=== PATIENT | male | born 1955 | race Caucasian/White ===

== ENCOUNTER 2016-03-25 17:06 | Emergency (ER) | payer MEDICARE ==
[2016-03-25] MEDS ORDERED: PROVENTIL 2.5 MG/3 ML NEB IH ONE ×4 (17:17→17:34)
--- NOTE | 2016-03-25 17:30 | ERPHSYRPT ---
- History of Present Illness Time Seen by Provider: 03/25/16 17:24 Source: patient Exam Limitations: no limitations Patient Subjective Stated Complaint: sob, cough for days Triage Nursing Assessment: woke up this morning with sob. white/yellow sputum. sob on arrival. rt upper wheeze with all over diminished. skin warm and dry. retractive sob. rt rib pain 'from coughing so hard i hurt myself' Physician History: States increase SOB, productive cough today, diaphoresis and chest discomfort from coughing. Pt. has COPD and on nebs QID. No fever, chills, dizziness or weakness. States no previous adm for resp. problems. Also been on Predisone for COPD exacerbation. Increase coughing when he felt "something popped" in R lower chest. Timing/Duration: today Activities at Onset: sleep Severity of Dyspnea-Max: moderate Severity of Dyspnea-Current: moderate Possible Cause: occasional episodes Modifying Factors: Improves With: activity (worsen), albuterol nebulizer ( improve), coughing (worsen) Associated Symptoms: constant, cough, wheezing, No edema, No fever, No chills, No lightheadedness International travel in last 2 weeks: No Allergies/Adverse Reactions: Penicillins Allergy (Verified 03/25/16 17:18) Home Medications: Albuterol 2.5 mg/3 ml Neb [Proventil 2.5 mg/3 ml Neb] 2.5 mg IH QID [History] Allopurinol 300 mg [Zyloprim 300 mg] 300 mg PO DAILY 03/25/16 [History] Fluticasone/Salmeterol [Advair 250-50 Diskus] 1 each IH DAILY 03/25/16 [History] Losartan Potassium [Cozaar] 100 mg PO DAILY 03/25/16 [History] Magnesium Oxide 400 mg [Mag-Ox 400] 400 mg PO DAILY 03/25/16 [History] Metformin HCl Xr 500 mg [Glucophage XR 500 MG] 500 mg PO DAILY 03/25/16 [ History] Simvastatin 20 mg PO DAILY 03/25/16 [History] Hx Tetanus, Diphtheria Vaccination/Date Given: Yes Hx Influenza Vaccination/Date Given: Yes Hx Pneumococcal Vaccination/Date Given: Yes Immunizations Up to Date: Yes - Past Medical History Pertinent Past Medical History: Yes Neurological History: No Pertinent History ENT History: No Pertinent History Cardiac History: No Pertinent History Respiratory History: COPD, Emphysema Endocrine Medical History: Diabetes Type II GI Medical History: GERD - Past Surgical History Past Surgical History: Yes Other Surgical History: dental - Social History Smoking Status: Former smoker Exposure to second hand smoke: No Alcohol Use: None Drug Use: none Patient Lives Alone: Yes - Nursing Vital Signs Nursing Vital Signs: Initial Vital Signs Temperature 99.6 F Temperature Source Oral Pulse Rate 89 Respiratory Rate 18 Blood Pressure 135/87 Pain Intensity 9 - Physical Exam General Appearance: mild distress, other (obese) Eye Exam: PERRL/EOMI Neck Exam: normal inspection, supple Respiratory Exam: diminished breath sounds, wheezing Cardiovascular/Chest Exam: normal heart sounds, regular rate/rhythm Abdominal/Gastrointestinal Exam: soft, No tenderness, No distention, No mass Extremity Exam: non-tender, normal range of motion, normal inspection, no calf tenderness, no pedal edema Peripheral Pulses Exam: dorsalis-pedis (R): 2+, dorsalis-pedis (L): 2+ Neurologic Exam: alert, oriented x 3, 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 ) Ordered Tests: Active Orders 24 hr Category Date Time Status Grain Packer STAT Care 03/25/16 17:28 Active EKG-ER Only STAT Care 03/25/16 17:34 Active IV Insertion STAT Care 03/25/16 17:27 Active CHEST 2 VIEWS (PA AND LAT) Stat Exams 03/25/16 17:36 Completed BMP Stat Lab 03/25/16 17:55 Completed CBC W DIFF Stat Lab 03/25/16 17:55 Completed D-DIMER QUANTITATION Stat Lab 03/25/16 17:55 Completed NT PRO BNP Stat Lab 03/25/16 17:55 Completed TROPONIN Stat Lab 03/25/16 17:55 Completed Respiratory Nebulizer STAT RT 03/25/16 17:20 Completed Respiratory Nebulizer STAT RT 03/25/16 17:30 Completed Respiratory Nebulizer STAT RT 03/25/16 19:10 Completed Medication Summary Discontinued Medications Generic Name Dose Route Start Last Admin Trade Name Jessica PRN Reason Stop Dose Admin Albuterol Sulfate Confirm 03/25/16 17:17 Proventil 2.5 Mg/3 Ml Neb Administered 03/25/16 17:18 Dose 2.5 mg IH .STK-MED ONE Albuterol Sulfate 2.5 mg 03/25/16 17:20 03/25/16 17:20 Proventil 2.5 Mg/3 Ml Neb IH 03/25/16 17:21 2.5 mg STAT ONE Administration Albuterol Sulfate 2.5 mg 03/25/16 17:32 03/25/16 17:37 Proventil 2.5 Mg/3 Ml Neb IH 03/25/16 17:33 2.5 mg STAT ONE Administration Albuterol Sulfate Confirm 03/25/16 17:34 Proventil 2.5 Mg/3 Ml Neb Administered 03/25/16 17:35 Dose 2.5 mg IH .STK-MED ONE Albuterol/Ipratropium Confirm 03/25/16 19:10 Duoneb 0.5-3 Mg/3 Ml Neb Administered 03/25/16 19:11 Dose 3 ml IH .STK-MED ONE Albuterol/Ipratropium 3 ml 03/25/16 19:10 03/25/16 19:16 Duoneb 0.5-3 Mg/3 Ml Neb IH 03/25/16 19:11 3 ml STAT ONE Administration Methylprednisolone Sodium Succinate 125 mg 03/25/16 17:38 03/25/16 17:46 Solu-Medrol 125 Mg IV 03/25/16 17:39 125 mg STAT ONE Administration Methylprednisolone Sodium Succinate Confirm 03/25/16 17:46 Solu-Medrol 125 Mg Administered 03/25/16 17:47 Dose 125 mg .ROUTE .STK-MED ONE Morphine Sulfate 4 mg 03/25/16 18:22 03/25/16 18:24 Morphine Sulfate 4 Mg Inj IV 03/25/16 18:23 4 mg STAT ONE Administration Morphine Sulfate Confirm 01/14/17 18:24 Morphine Sulfate 4 Mg Inj Administered 03/25/16 18:25 Dose 4 mg .ROUTE .STK-MED ONE Lab/Rad Data: Laboratory Result Diagrams 03/25/16 17:55 03/25/16 17:55 Laboratory Results 03/25/16 03/25/16 03/25/16 Range/Units 17:55 17:55 17:55 WBC 14.5 H (4.0-10.5) K/mm3 RBC 5.03 (4.1-5.6) M/mm3 Hgb 15.4 (12.5-18.0) gm/dl Hct 46.7 (42-50) % MCV 92.8 (78-100) fl MCH 30.6 (26-32) pg MCHC 33.0 (32-36) g/dl RDW 13.7 (11.5-14.0) % Plt Count 236 (150-450) K/mm3 MPV 10.7 H (6-9.5) fl Gran % 74.7 H (36.0-66.0) % Lymphocytes % 13.8 L (24.0-44.0) % Monocytes % 10.2 (0.0-12.0) % Eosinophils % 1.2 (0.00-5.0) % Basophils % 0.1 (0.0-0.4) % Basophils # 0.02 (0-0.4) D-Dimer < 0.20 (0.00-0.49) mg/L Sodium 136 (136-145) mEq/L Potassium 4.4 (3.5-5.1) mEq/L Chloride 98 (98-107) mEq/L Carbon Dioxide 28.3 (21-32) mEq/L Anion Gap 14.3 (5-15) MEQ/L BUN 18 (9-20) mg/dL Creatinine 1.06 (0.55-1.30) mg/dl Estimated GFR > 60 ML/MIN Glucose 152 H (70-110) MG/DL Calcium 8.7 (8.5-10.1) mg/dL Troponin I < 0.017 (0.000-0.056) ng/ml NT-Pro-B Natriuret Pep < 5.0 (0-125) pg/ml - Progress Progress: improved Air Movement: good Progress Note: 03/25/16 19:02 patient was given DuoNeb's treatment, Solu-Medrol which did seem to improve his respiratory function. Patient was also given morphine for pain. Patient talking full sentences without acute respiratory distress. O2 sats were 93-96%. Blood Culture(s) Obtained: No Counseled pt/family regarding: lab results, diagnosis, rad results - Departure Time of Disposition: 19:19 Departure Disposition: Home Clinical Impression: Bronchitis, COPD exacerbation, Pulmonary nodule, right Condition: Stable Critical Care Time: No Referrals: ELENO RICHARDS [Primary Care Provider] - Instructions: Chronic Obstructive Pulmonary Disease Additional Instructions: return for worse cough, shortness of breath, fever or any problems. RX: Levaquin, Prednisone, Tussione'sx Patient to have further evaluation of right pulmonary nodule with chest CT per his family physician.
[2016-03-25] MEDS ORDERED: solu-MEDROL 125 MG IV ONE (17:38)
[2016-03-25] MEDS ORDERED: solu-MEDROL 125 MG ONE (17:46)
[2016-03-25 18:07] LABS: BASOPHIL % 0.1 % (0.0-0.4); Eosinophil % 1.2 % (0.00-5.0); Granulocytes % 74.7 % (36.0-66.0); Lymphocytes % 13.8 % (24.0-44.0); Mean Cell Volume 92.8 fl (78-100); Mean Corpuscular Hemoglobin 30.6 pg (26-32); Mean Platelet Volume 10.7 fl (6-9.5); Monocytes % 10.2 % (0.0-12.0); Platelet Count 236 K/mm3 (150-450); Red Blood Count 5.03 M/mm3 (4.1-5.6); Red Cell Distribution Width 13.7 % (11.5-14.0); White Blood Count 14.5 K/mm3 (4.0-10.5)
[2016-03-25] MEDS ORDERED: MORPHINE SULFATE 4 MG INJ IV ONE (18:22)
[2016-03-25] MEDS ORDERED: MORPHINE SULFATE 4 MG INJ ONE (18:24)
[2016-03-25 18:28] LABS: ANION GAP 14.3 MEQ/L (5-15); BLOOD UREA NITROGEN 18 mg/dL (9-20); CHLORIDE 98 mEq/L (98-107); Carbon Dioxide 28.3 mEq/L (21-32); Glucose 152 MG/DL (70-110); Potassium 4.4 mEq/L (3.5-5.1); SODIUM 136 mEq/L (136-145)
[2016-03-25 18:31] LABS: TROPONIN < 0.017 ng/ml (0.000-0.056)
--- NOTE | 2016-03-25 18:32 | XRAY ---
Indication: Short of breath, cough, and right-sided pain. Comparison: September 02, 2013 PA/lateral chest again hyperinflated with calcified granulomas and bibasilar atelectasis/scarring. No focal infiltrate, consolidation, or large effusion. Heart is not enlarged. Vascularity normal. Bony thorax intact. Impression: Nonacute chest with chronic features.
[2016-03-25] MEDS ORDERED: DUONEB 0.5-3 MG/3 ml Neb IH ONE ×2 (19:10)
[2016-03-25] MEDS ORDERED: Levaquin 500 MG Tablet ONE (19:54)
[2016-03-25 20:01] VITALS: BP 139/79; PULSE 88; O2SAT 94
[2016-03-25] MEDS ORDERED: OXYCODONE-ACETAMINOPHEN 10-325 PO STA (20:02)
[2016-03-25] MEDS ORDERED: OXYCODONE-ACETAMINOPHEN 10-325 ONE (20:21)
[2016-03-26] MEDS ORDERED: Levaquin 500 MG Tablet PO ONE (19:41)
== END 2016-03-25 20:30 | disposition home or self-care (01) ==
LOC: ED 17:06
DX: J40 Bronchitis, not specified as acute or chronic (principal); J44.1 Chronic obstructive pulmonary disease with (acute) exacerbation; R91.1 Solitary pulmonary nodule; E11.9 Type 2 diabetes mellitus without complications; Z79.84 Long term (current) use of oral hypoglycemic drugs; Z87.891 Personal history of nicotine dependence
CPT/HCPCS: 36000; 36415; 71020; 80048; 83880; 84484; 85025; 85379; 93005; 93041; 94640; 96374; 96375; 99284; J2270; J2930

== ENCOUNTER 2016-04-02 00:34 | Inpatient (IN) | payer MEDICARE ==
[2016-04-02] MEDS ORDERED: Phenergan 25 MG INJ IV ONE (00:40)
[2016-04-02] MEDS ORDERED: DILAUDID 1 MG/ML INJECTION IV ONE ×2 (00:40→02:03)
[2016-04-02] MEDS ORDERED: Sodium Chloride 0.9% 1000 ML 1,000 ML IV SCH (00:45)
--- NOTE | 2016-04-02 00:50 | ERPHSYRPT ---
- History of Present Illness Time Seen by Provider: 04/02/16 00:38 Source: patient Exam Limitations: no limitations Physician History: 8 DAYS AGO PT COUGHED AND SOMETHING IN HIS RIGHT LOWER ANTERIOR CHEST "POPPED" WITH RESULTANT PAIN. PT JUST FINISHED A 7 DAY COURSE OF LEVAQUIN TODAY. PT DENIES ABDOMINAL PAIN, FEVER, VOMITING. PT HAS SHORTNESS OF AIR FROM HIS COPD. Allergies/Adverse Reactions: Penicillins Allergy (Verified 04/02/16 00:40) Home Medications: Albuterol 2.5 mg/3 ml Neb [Proventil 2.5 mg/3 ml Neb] 2.5 mg IH QID [History] Allopurinol 300 mg [Zyloprim 300 mg] 300 mg PO DAILY 03/25/16 [History] Fluticasone/Salmeterol [Advair 250-50 Diskus] 1 each IH DAILY 03/25/16 [History] Losartan Potassium [Cozaar] 100 mg PO DAILY 03/25/16 [History] Magnesium Oxide 400 mg [Mag-Ox 400] 400 mg PO DAILY 03/25/16 [History] Metformin HCl Xr 500 mg [Glucophage XR 500 MG] 500 mg PO DAILY 03/25/16 [ History] Simvastatin 20 mg PO DAILY 03/25/16 [History] Hx Tetanus, Diphtheria Vaccination/Date Given: Yes Hx Influenza Vaccination/Date Given: Yes Hx Pneumococcal Vaccination/Date Given: Yes - Review of Systems Constitutional: No Fever Respiratory: Cough, Dyspnea Cardiac: Chest Pain Abdominal/Gastrointestinal: No Abdominal Pain, No Vomiting, No Diarrhea All Other Systems: Reviewed and Negative - Past Medical History Pertinent Past Medical History: Yes Neurological History: No Pertinent History ENT History: No Pertinent History Cardiac History: No Pertinent History Respiratory History: COPD, Emphysema Endocrine Medical History: Diabetes Type II GI Medical History: GERD - Past Surgical History Past Surgical History: Yes Other Surgical History: dental - Social History Smoking Status: Former smoker Exposure to second hand smoke: No Alcohol Use: None Drug Use: none Patient Lives Alone: Yes - Nursing Vital Signs Nursing Vital Signs: Initial Vital Signs Pulse Rate 80 Respiratory Rate 24 Blood Pressure [] 163/87 Pain Intensity 4 - Physical Exam General Appearance: alert Eye Exam: PERRL/EOMI Ears, Nose, Throat Exam: TMs normal, pharyngeal erythema Neck Exam: normal inspection Respiratory Exam: airway intact, diminished breath sounds, prolonged expirations , wheezing (MINIMAL EXPIRATORY WHEEZING OVER POSTERIOR BASES.) Cardiovascular Exam: normal heart sounds Gastrointestinal/Abdomen Exam: normal bowel sounds, distention, other (LARGE ECCHYMOSIS OVER RIGHT SIDE OF ABDOMEN), No tenderness Back Exam: normal inspection Extremity Exam: No pedal edema Neurologic Exam: alert, cooperative - Course Nursing assessment & vital signs reviewed: Yes EKG Interpreted by Me: RATE (80), Sinus Rhythm, NORMAL AXIS, NORMAL QRS - Radiology Exams Chest X-ray Interpretation: Interpreted by me (CM; POSSIBLE RLL INFILTRATE.) - CT Exams Abdomen/Pelvis CT Interpretation: Tele-radiologist Report (RLL PNEUMONIA; SMALL PLEURAL EFFUSIONS RIGHT GREATER THAN LEFT.) Ordered Tests: Active Orders 24 hr Category Date Time Status EKG-ER Only STAT Care 04/02/16 00:40 Active IV Insertion STAT Care 04/02/16 00:40 Active Oxygen-ED Only NASAL CANNULA 2 lpm Care 04/02/16 03:00 Ordered Oxygen-ED Only NASAL CANNULA 4 lpm Care 04/02/16 02:52 Active ABDOMEN AND PELVIS W/0 CONTRAS [CT] Stat Exams 04/02/16 01:25 Taken CHEST 1 VIEW (PORTABLE) Stat Exams 04/02/16 01:23 Taken AMYLASE Stat Lab 04/02/16 00:55 Completed ARTERIAL BLOOD GASES Urgent Lab 04/02/16 00:48 Completed BLOOD CULTURE Stat Lab 04/02/16 03:00 Ordered CBC W DIFF Stat Lab 04/02/16 00:55 Completed CMP Stat Lab 04/02/16 00:55 Completed CULTURE,SPUTUM Stat Lab 04/02/16 03:00 Uncollected D-DIMER QUANTITATION Stat Lab 04/02/16 00:55 Completed LIPASE Stat Lab 04/02/16 00:55 Completed MAGNESIUM Stat Lab 04/02/16 00:55 Completed Manual Differential NC Stat Lab 04/02/16 00:55 Completed NT PRO BNP Stat Lab 04/02/16 00:55 Completed PROTIME WITH INR Stat Lab 04/02/16 00:55 Completed PTT Stat Lab 04/02/16 00:55 Completed TROPONIN Stat Lab 04/02/16 00:55 Completed UA Stat Lab 04/02/16 00:40 Ordered Respiratory Nebulizer STAT RT 04/02/16 03:01 Ordered Medication Summary Generic Name Dose Route Start Last Admin Trade Name Jessica PRN Reason Stop Dose Admin Sodium Chloride 1,000 mls @ 100 mls/hr 04/02/16 00:45 04/02/16 01:06 Sodium Chloride 0.9% 1000 Ml IV 05/02/16 00:44 100 mls/hr .Q10H ANJALI Administration Azithromycin 250 mls @ 125 mls/hr 04/02/16 03:00 Zithromax 500 Mg/ 250 Ml Nacl Premix IV 04/02/16 04:59 STAT ONE Ceftriaxone Sodium/Dextrose 50 mls @ 100 mls/hr 04/02/16 03:00 Rocephin 1 Gm-D5w 50 Ml Bag IV 04/02/16 03:29 STAT ONE Discontinued Medications Generic Name Dose Route Start Last Admin Trade Name Jessica PRN Reason Stop Dose Admin Albuterol Sulfate 2.5 mg 04/02/16 03:00 Proventil 2.5 Mg/3 Ml Neb IH 04/02/16 03:01 STAT ONE Hydromorphone HCl 1 mg 04/02/16 00:40 04/02/16 01:07 Dilaudid 1 Mg/Ml Injection IV 04/02/16 00:41 1 mg STAT ONE Administration Hydromorphone HCl Confirm 04/02/16 01:00 Dilaudid 1 Mg/Ml Injection Administered 04/02/16 01:01 Dose 1 mg .ROUTE .STK-MED ONE Hydromorphone HCl 1 mg 04/02/16 02:03 04/02/16 02:05 Dilaudid 1 Mg/Ml Injection IV 04/02/16 02:04 1 mg STAT ONE Administration Hydromorphone HCl Confirm 04/02/16 02:04 Dilaudid 1 Mg/Ml Injection Administered 04/02/16 02:05 Dose 1 mg .ROUTE .STK-MED ONE Sodium Chloride Confirm 04/02/16 01:00 Sodium Chloride 0.9% 1000 Ml Administered 04/02/16 01:01 Dose 1,000 mls @ ud .ROUTE .STK-MED ONE Promethazine HCl 12.5 mg 04/02/16 00:40 04/02/16 01:05 Phenergan 25 Mg Inj IV 04/02/16 00:41 12.5 mg STAT ONE Administration Promethazine HCl Confirm 04/02/16 00:59 Phenergan 25 Mg Inj Administered 04/02/16 01:00 Dose 25 mg .ROUTE .STK-MED ONE Lab/Rad Data: Laboratory Result Diagrams 04/02/16 00:55 04/02/16 00:55 Laboratory Results 04/02/16 04/02/16 04/02/16 Range/Units 00:55 00:55 00:55 WBC 16.5 H (4.0-10.5) K/mm3 RBC 4.83 (4.1-5.6) M/mm3 Hgb 14.9 (12.5-18.0) gm/dl Hct 45.1 (42-50) % MCV 93.4 (78-100) fl MCH 30.8 (26-32) pg MCHC 33.0 (32-36) g/dl RDW 13.7 (11.5-14.0) % Plt Count 254 (150-450) K/mm3 MPV 10.2 H (6-9.5) fl Segmented Neutrophils 74 H (36.-66.) % Lymphocytes (Manual) 16 L (24-44) % Monocytes (Manual) 9 (0.0-12.0) % Eosinophils (Manual) 1 (0.00-3.0) % Differential Comment NORMAL Platelet Estimate NORMAL (NORMAL) INR 0.97 (0.8-3.0) PTT 27.2 (24.1-36.1) SECONDS D-Dimer 0.443 (0.00-0.49) mg/L Puncture Site pCO2 (35-45) mmHg pO2 (75-100) mmHg Base Excess (-2.0-2.0) O2 Saturation (94-100) g/dF ABG pH (7.35-7.45) ABG HCO3 (22-28) ABG O2 Sat (Measured) (95-100) % [place] Test A-a Gradient a/A Ratio Hemoglobin Carboxyhemoglobin (0.0-6.9) % THgb Methemoglobin (1.4-1.5) % Potassium 4.3 (3.5-5.1) Temperature C POC O2 Flow Rate % Sodium 135 L (136-145) mEq/L Chloride 97 L (98-107) mEq/L Carbon Dioxide 28.0 (21-32) mEq/L Anion Gap 14.0 (5-15) MEQ/L BUN 20 (9-20) mg/dL Creatinine 1.11 (0.55-1.30) mg/dl Estimated GFR > 60 ML/MIN Glucose 236 H (70-110) MG/DL Calcium 8.5 (8.5-10.1) mg/dL Magnesium 1.9 (1.8-2.4) mg/dL Total Bilirubin 0.3 (0.2-1.0) mg/dL AST 13 L (15-37) U/L ALT 52 (12-78) U/L Alkaline Phosphatase 76 (46-116) U/L Troponin I < 0.017 (0.000-0.056) ng/ml NT-Pro-B Natriuret Pep 57 (0-125) pg/ml Serum Total Protein 7.2 (6.4-8.2) gm/dL Albumin 3.5 (3.4-5.0) g/dL Amylase 41 (25-115) U/L Lipase 91 (73-393) U/L 04/02/16 Range/Units 00:48 WBC (4.0-10.5) K/mm3 RBC (4.1-5.6) M/mm3 Hgb (12.5-18.0) gm/dl Hct (42-50) % MCV (78-100) fl MCH (26-32) pg MCHC (32-36) g/dl RDW (11.5-14.0) % Plt Count (150-450) K/mm3 MPV (6-9.5) fl Segmented Neutrophils (36.-66.) % Lymphocytes (Manual) (24-44) % Monocytes (Manual) (0.0-12.0) % Eosinophils (Manual) (0.00-3.0) % Differential Comment Platelet Estimate (NORMAL) INR (0.8-3.0) PTT (24.1-36.1) SECONDS D-Dimer (0.00-0.49) mg/L Puncture Site LEFT RADIAL pCO2 38 (35-45) mmHg pO2 72 L (75-100) mmHg Base Excess 3.1 H (-2.0-2.0) O2 Saturation 93.9 L (94-100) g/dF ABG pH 7.46 H (7.35-7.45) ABG HCO3 27.0 (22-28) ABG O2 Sat (Measured) 96.1 (95-100) % [place] Test YES A-a Gradient 109 a/A Ratio 0.40 Hemoglobin 15.3 Carboxyhemoglobin 1.0 (0.0-6.9) % THgb Methemoglobin 1.2 L (1.4-1.5) % Potassium 4.3 (3.5-5.1) Temperature 37.0 C POC O2 Flow Rate 32 % Sodium (136-145) mEq/L Chloride (98-107) mEq/L Carbon Dioxide (21-32) mEq/L Anion Gap (5-15) MEQ/L BUN (9-20) mg/dL Creatinine (0.55-1.30) mg/dl Estimated GFR ML/MIN Glucose (70-110) MG/DL Calcium (8.5-10.1) mg/dL Magnesium (1.8-2.4) mg/dL Total Bilirubin (0.2-1.0) mg/dL AST (15-37) U/L ALT (12-78) U/L Alkaline Phosphatase (46-116) U/L Troponin I (0.000-0.056) ng/ml NT-Pro-B Natriuret Pep (0-125) pg/ml Serum Total Protein (6.4-8.2) gm/dL Albumin (3.4-5.0) g/dL Amylase (25-115) U/L Lipase (73-393) U/L - Progress Discussed with : Donny (OBS - [id number]) - Departure Time of Disposition: 03:09 Departure Disposition: Observation Clinical Impression: RLL PNEUMONIA, CHEST PAIN, ABDOMINAL BRUISING, COPD, DM, GERD Condition: Fair Critical Care Time: No
[2016-04-02 00:58] LABS: A-aADO2 109; ARTERIAL BLD GAS O2 SATURATION 96.1 % (95-100); ARTERIAL BLOOD GAS BASE EXCESS 3.1 (-2.0-2.0); ARTERIAL BLOOD GAS FIO2 32 %; ARTERIAL BLOOD GAS PO2 72 mmHg (75-100); ARTERIAL BLOOD GAS pH 7.46 (7.35-7.45)
[2016-04-02 00:59] LABS: ALLEN TEST OK? YES
[2016-04-02] MEDS ORDERED: Phenergan 25 MG INJ ONE (00:59)
[2016-04-02 01:00] LABS: Mean Cell Volume 93.4 fl (78-100); Mean Corpuscular Hemoglobin 30.8 pg (26-32); Mean Platelet Volume 10.2 fl (6-9.5); Platelet Count 254 K/mm3 (150-450); Red Blood Count 4.83 M/mm3 (4.1-5.6); Red Cell Distribution Width 13.7 % (11.5-14.0); White Blood Count 16.5 K/mm3 (4.0-10.5)
[2016-04-02] MEDS ORDERED: Sodium Chloride 0.9% 1000 ML 1,000 ML ONE (01:00)
[2016-04-02] MEDS ORDERED: DILAUDID 1 MG/ML INJECTION ONE ×2 (01:00→02:04)
[2016-04-02 01:10] LABS: INR 0.97 (0.8-3.0); PROTIME 10.9 SECONDS (8.83-12.87)
[2016-04-02 01:13] LABS: PTT 27.2 SECONDS (24.1-36.1)
[2016-04-02 01:25] LABS: ALBUMIN 3.5 g/dL (3.4-5.0); ALKALINE PHOSPHATASE 76 U/L (46-116); BILIRUBIN,TOTAL 0.3 mg/dL (0.2-1.0); BLOOD UREA NITROGEN 20 mg/dL (9-20); CHLORIDE 97 mEq/L (98-107); Glucose 236 MG/DL (70-110); LIPASE 91 U/L (73-393); MAGNESIUM 1.9 mg/dL (1.8-2.4); Potassium 4.3 mEq/L (3.5-5.1); SGOT/AST 13 U/L (15-37); SGPT/ALT 52 U/L (12-78); SODIUM 135 mEq/L (136-145); Total Protein 7.2 gm/dL (6.4-8.2)
[2016-04-02 01:33] LABS: TROPONIN < 0.017 ng/ml (0.000-0.056)
[2016-04-02 01:48] LABS: Eosinophil 1 % (0.00-3.0); Platelet Estimate NORMAL (NORMAL); Total Cells Counted 100
[2016-04-02] MEDS ORDERED: ROCEPHIN 1 Gm-D5w 50 ml Bag** 50 ML IV ONE ×2 (03:00→03:09)
[2016-04-02] MEDS ORDERED: Zithromax 500 MG/ 250 ML NaCl Premix 250 ML IV ONE (03:00)
[2016-04-02] MEDS ORDERED: PROVENTIL 2.5 MG/3 ML NEB IH ONE ×2 (03:00→03:10)
[2016-04-02] MEDS ORDERED: Phenergan 25 MG INJ IV PRN (03:46)
[2016-04-02] MEDS ORDERED: TYLENOL 325 MG PO PRN (03:46)
[2016-04-02] MEDS ORDERED: PROVENTIL 2.5 MG/3 ML NEB IH PRN (03:46)
--- NOTE | 2016-04-02 07:03 | PCM.HP ---
History of Present Illness - Chief Complaint Chief Complaint: Shortness of Breath History of Present Illness: is a 60 year old male who presented to the ER with cough, congestion and pain in right chest wall. He coughed hard 8 days ago and developed a popping sensation to right chest wall, he noticed extensive bruising a couple of days later. He had a chest ct which was negative. - Review of Systems Constitutional: No Fever, No Chills Respiratory: Cough Cardiac: Chest Pain, No Edema, No Syncope Abdominal/Gastrointestinal: No Abdominal Pain, No Nausea, No Vomiting, No Diarrhea All Other Systems: Reviewed and Negative Medications & Allergies Home Medications: Home Medication List Albuterol 2.5 mg/3 ml Neb [Proventil 2.5 mg/3 ml Neb] 2.5 mg IH QID [History Confirmed 04/02/16] Allopurinol 300 mg [Zyloprim 300 mg] 300 mg PO DAILY 03/25/16 [History Confirmed 04/02/16] Losartan Potassium [Cozaar] 100 mg PO DAILY 03/25/16 [History Confirmed 04/02/16 ] Magnesium Oxide 400 mg [Mag-Ox 400] 400 mg PO DAILY 03/25/16 [History Confirmed 04/02/16] Metformin HCl Xr 500 mg [Glucophage XR 500 MG] 500 mg PO DAILY 03/25/16 [ History Confirmed 04/02/16] Simvastatin 20 mg PO HS 03/25/16 [History Confirmed 04/02/16] Fluticasone/Salmeterol 115/21 [Advair Hfa 115/21 Common canister*] 2 puff IH BIDRT 04/02/16 [History Confirmed 04/02/16] Guaifenesin [Mucus Relief] 400 mg PO Q4H PRN PRN 04/02/16 [History Confirmed ] Loratadine 10 mg [Claritin 10 mg] 10 mg PO DAILY 04/02/16 [History Confirmed 04/02/16] Montelukast Sodium 10 mg PO DAILY 04/02/16 [History Confirmed 04/02/16] Prednisone 10 mg [Deltasone 10 mg] 10 mg PO UD 04/02/16 [History Confirmed 04/02/16] Allergies/Adverse Reactions: Allergies Allergy/AdvReac Type Severity Reaction Status Date / Time Penicillins Allergy Verified 04/02/16 00:40 - Past Medical History Past Medical History: Yes Neurological History: No Pertinent History ENT History: No Pertinent History Cardiac History: No Pertinent History Respiratory History: COPD, Emphysema Endocrine Medical History: Diabetes Type II GI Medical History: GERD - Past Surgical History Past Surgical History: Yes Other Surgical History: dental - Social History Smoking Status: Former smoker Exposure to second hand smoke: No Alcohol: None Drug Use: none - Physical Exam Vital Signs: Vital Signs - 24 hr Temp Pulse Resp BP Pulse Ox 04/02/16 03:57 98.5 F 89 20 138/74 95 04/02/16 03:46 82 20 95 04/02/16 03:27 78 167/61 94 L 04/02/16 03:18 82 18 90 L 04/02/16 03:14 80 22 132/100 92 L 04/02/16 02:39 80 24 92 L 04/02/16 00:41 94 H 32 H 163/87 92 L Oxygen-Last 24 hours O2 Percentage 4 Liters = 36% O2 Percentage 4 Liters = 36% O2 Percentage 4 Liters = 36% O2 Percentage 4 Liters = 36% General Appearance: no apparent distress, alert Respiratory Exam: diminished breath sounds, other (extensive bruising to right chest wall and down to right abdominal wall) Cardiovascular Exam: regular rate/rhythm, normal heart sounds, normal peripheral pulses Gastrointestinal/Abdomen Exam: soft, normal bowel sounds, No tenderness, No mass Extremity Exam: normal inspection, normal range of motion, pelvis stable Results - Other Procedures and Tests Respiratory Therapy 04/02/16 04:35 Respiratory Nebulizer UD 04/02/16 06:08 BiPap/CPAP Assessment ROUTINE 04/02/16 07:00 Respiratory MDI BID Respiratory Nebulizer Q4H Assessment/Plan (1) Pneumonia Current Visit: Yes Status: Acute Code(s): J18.9 - PNEUMONIA, UNSPECIFIED ORGANISM (2) Chest wall contusion Current Visit: Yes Status: Acute (3) COPD exacerbation Current Visit: No Status: Acute Code(s): J44.1 - CHRONIC OBSTRUCTIVE PULMONARY DISEASE W (ACUTE) EXACERBATION
[2016-04-02] MEDS: Advair Hfa 115/21 Common canister IH SCH ×2 (07:19→18:56)
[2016-04-02] MEDS: DUONEB 0.5-3 MG/3 ml Neb IH SCH ×5 (07:19→22:40)
[2016-04-02] MEDS: DILAUDID 2 MG INJECTION IV PRN ×3 (07:24→22:39)
[2016-04-02] MEDS: NovoLOG Insulin SQ PRN ×4 (08:16→21:44)
[2016-04-02] MEDS: Sodium Chloride 0.9% 1000 ML 1,000 ML IV SCH ×2 (08:20→16:57)
[2016-04-02] MEDS: PROTONIX 40 MG IV IV SCH (08:21)
[2016-04-02] MEDS ORDERED: GUAIFENESIN 400 MG PO PRN (08:31)
[2016-04-02] MEDS ORDERED: DELTASONE 10 MG PO SCH (08:45)
[2016-04-02 08:46] LABS: Mean Cell Volume 94.5 fl (78-100); Mean Corpuscular Hemoglobin 30.7 pg (26-32); Mean Platelet Volume 10.5 fl (6-9.5); Platelet Count 253 K/mm3 (150-450); Red Blood Count 4.69 M/mm3 (4.1-5.6); Red Cell Distribution Width 13.9 % (11.5-14.0); White Blood Count 16.7 K/mm3 (4.0-10.5)
[2016-04-02 09:15] LABS: ALBUMIN 3.3 g/dL (3.4-5.0); ALKALINE PHOSPHATASE 71 U/L (46-116); BILIRUBIN,TOTAL 0.5 mg/dL (0.2-1.0); BLOOD UREA NITROGEN 23 mg/dL (9-20); CHLORIDE 98 mEq/L (98-107); Carbon Dioxide 28.3 mEq/L (21-32); Glucose 193 MG/DL (70-110); Potassium 4.3 mEq/L (3.5-5.1); SGOT/AST 15 U/L (15-37); SGPT/ALT 46 U/L (12-78); SODIUM 135 mEq/L (136-145); Total Protein 6.7 gm/dL (6.4-8.2)
[2016-04-02 09:21] LABS: TROPONIN < 0.017 ng/ml (0.000-0.056)
[2016-04-02 09:49] LABS: ATYPICAL LYMPHS 1 %; BAND 2 % (0.0-2.0); Platelet Estimate NORMAL (NORMAL); Total Cells Counted 100
[2016-04-02] MEDS ORDERED: NON-FORMULARY ITEM (Losartan Potassium [Cozaar] 100 MG) PO SCH (10:00)
--- NOTE | 2016-04-02 10:03 | XRAY ---
Indication: Chest pain and cough. Comparison: March 25, 2016 Portable apical lordotic chest less inflated with new right base infiltrate/atelectasis/effusion. Remaining left lung and heart are unremarkable.
--- NOTE | 2016-04-02 10:06 | XRAY ---
Indication: Abdominal pain. Elevated WBC. Large ecchymosis across abdomen. Cough. Multiple contiguous axial images obtained through the abdomen and pelvis without contrast as ordered. Comparison: None Lung bases demonstrates right lower lobe infiltrate with small effusion. Heart is not enlarged. Small pericardial effusion/thickening. Left abdominal wall not completely included in the [id number] due to body habitus. No suspicious solid/cystic abdominal wall mass or abnormal fluid collection. Noncontrasted stomach and bowel loops appear nonobstructed. Mild scattered colonic fecal debris throughout. Normal appendix. No free fluid/air. Fatty liver. Remaining liver, gallbladder, pancreas, spleen, adrenal glands, kidneys, ureters, and bladder appear unremarkable for noncontrast exam. Mild aortoiliac calcifications without AAA. Osseous structures intact with mild lumbosacral junction degenerative disc disease and bilateral L5 spondylolysis with minimal spondylolisthesis. Small right iliopsoas intramuscular lipoma at the level of the hip. Impression: 1. Mild fecal stasis without obstruction. 2. Right lower lobe infiltrate with effusion. 3. Incidental fatty liver, small pericardial effusion/thickening, right iliopsoas intramuscular lipoma, and bilateral L5 spondylolysis with minimal spondylolisthesis. Comment: Preliminary interpretation was made by [facility]. No critical discrepancy. CTDI 23.68
[2016-04-02] MEDS: Cozaar 50 MG PO SCH (11:05)
[2016-04-02] MEDS: CLARITIN 10 MG PO SCH (11:05)
[2016-04-02] MEDS: MAG-OX 400 PO SCH (11:06)
[2016-04-02] MEDS: Glucophage XR 500 MG PO SCH (11:06)
[2016-04-02] MEDS: ZYLOPRIM 300 MG PO SCH (11:06)
[2016-04-02] MEDS: Singulair 10 MG PO SCH (11:06)
[2016-04-02] MEDS: DELTASONE 20 MG PO SCH (11:06)
[2016-04-02] MEDS: Flonase NASAL NS SCH (12:12)
[2016-04-02] MEDS: Mucinex 600MG ER Tabs PO SCH (20:31)
[2016-04-02] MEDS: ZOCOR 20MG PO SCH (21:43)
[2016-04-02] MEDS: ROCEPHIN 1 Gm-D5w 50 ml Bag** 50 ML IV SCH (21:43)
[2016-04-02 22:27] LABS: Bacteria FEW /HPF (NEGATIVE); COMPLETE URINE MICROSCOPIC? YES; Collection Type CLEAN CATCH; WBC 0-2 /HPF (0-5)
[2016-04-02] MEDS: Zithromax 500 MG/ 250 ML NaCl Premix 250 ML IV SCH (22:30)
[2016-04-03 05:46] LABS: Mean Cell Volume 95.1 fl (78-100); Mean Corpuscular Hemoglobin 30.6 pg (26-32); Mean Platelet Volume 10.2 fl (6-9.5); Platelet Count 235 K/mm3 (150-450); Red Blood Count 4.45 M/mm3 (4.1-5.6); White Blood Count 13.3 K/mm3 (4.0-10.5)
[2016-04-03 06:04] LABS: ANION GAP 11.9 MEQ/L (5-15); BLOOD UREA NITROGEN 17 mg/dL (9-20); CHLORIDE 101 mEq/L (98-107); Carbon Dioxide 28.5 mEq/L (21-32); Glucose 152 MG/DL (70-110); Potassium 4.3 mEq/L (3.5-5.1); SODIUM 137 mEq/L (136-145)
[2016-04-03] MEDS: DUONEB 0.5-3 MG/3 ml Neb IH SCH ×6 (06:06→22:54)
[2016-04-03] MEDS: Advair Hfa 115/21 Common canister IH SCH ×2 (06:07→18:43)
[2016-04-03 06:34] LABS: Eosinophil 2 % (0.00-3.0); Platelet Estimate NORMAL (NORMAL); Total Cells Counted 100
[2016-04-03] MEDS: DELTASONE 20 MG PO SCH (07:52)
[2016-04-03] MEDS: Singulair 10 MG PO SCH (07:52)
[2016-04-03] MEDS: PROTONIX 40 MG IV IV SCH (07:52)
[2016-04-03] MEDS: Glucophage XR 500 MG PO SCH (07:53)
[2016-04-03] MEDS: CLARITIN 10 MG PO SCH (07:53)
[2016-04-03] MEDS: Flonase NASAL NS SCH (07:53)
[2016-04-03] MEDS: MAG-OX 400 PO SCH (07:53)
[2016-04-03] MEDS: ZYLOPRIM 300 MG PO SCH (07:53)
[2016-04-03] MEDS: Cozaar 50 MG PO SCH (07:53)
--- NOTE | 2016-04-03 08:54 | PCM.NOTE ---
Date and Time: 04/03/16 0848 Subjective Assessment: Mr. Moseley first presented to the ER on 03/25/16 here at [facility] with a cough and felt a pop in his right lower chest. He was diagnosed with COPD exacerbation and started on steroids and levofloxacin. He conitnue dot have a cough, congestion and a hard time breathing. He was seen by [facility] Marcos Fabian on 03/27/16 for follow up of a lung nodule seen on X-ray on 03/25/[address] ordered and done 03/28/16. He then saw Dr. Alicea on 03/31/16 and was diagnosed with allergic rhinitis and started on an antihistamine. Marcos Fabian had given him pain medication for his right side pain and he states he took more than what was prescribed because of excrutiating pain. He states when he saw Dr. Alicea , he had extensive bruising on his right side. He came back to the ER with pain and trouble sleeping due to the cough which the cough medication and pain pills were not helping with. He also reports sinus drainage and cough at night. 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 He also reports weight gain and swelling in his lower extremities. - Review of Systems Constitutional: Fatigue Eyes: No Symptoms Ears, Nose, & Throat: No Symptoms Respiratory: Cough, Short Of Breath Cardiac: No Symptoms Abdominal/Gastrointestinal: No Symptoms Genitourinary Symptoms: No Symptoms Musculoskeletal: Other (right side pain) Skin: Other (extensive brusing on his right side) Objective Exam General Appearance: obese Neurologic Exam: alert, cooperative, normal mood/affect Skin Exam: normal color, warm, dry, other (extensive brusing on this right side but not reaching to his umbilicus and down to his groin area. deep dark purple) Respiratory Exam: normal breath sounds, lungs clear, crackles/rales, other ( talking in full sentences, on 4 L NC), No rhonchi, No wheezing Cardiovascular Exam: regular rate/rhythm, normal heart sounds, No murmur, No friction rub, No gallop Gastrointestinal/Abdomen Exam: normal bowel sounds, distention, other, No tenderness, No mass, No guarding Extremity Exam: normal inspection, other (+1 edema to mid shins) OBJECTIVE DATA Vital Signs: Vital Signs - 24 hr Temp Pulse Resp BP Pulse Ox 04/03/16 08:00 22 04/03/16 07:11 97.6 F 96 H 22 125/67 96 04/03/16 06:07 77 16 94 L 04/03/16 04:00 98.2 F 83 12 164/82 95 04/03/16 03:46 95 04/02/16 23:39 98.2 F 93 H 20 138/66 95 04/02/16 22:41 91 H 18 92 L 04/02/16 20:00 98.0 F 101 H 22 134/60 93 L 04/02/16 18:56 87 18 94 L 04/02/16 16:22 98.1 F 87 24 130/76 96 04/02/16 14:15 93 H 20 95 04/02/16 12:39 98 F 93 H 22 134/67 96 04/02/16 10:27 81 18 96 Oxygen-Last 24 hours O2 Percentage 4 Liters = 36% O2 Percentage 4 Liters = 36% O2 Percentage 4 Liters = 36% O2 Percentage 4 Liters = 36% O2 Percentage 4 Liters = 36% O2 Percentage 5 Liters = 40% Pain Assessment - Last Documented Pain Intensity 0 Pain Scale Used FLACC Intake and Output: Intake & Output 04/01/16 04/02/16 04/03/16 04/04/16 06:59 06:59 06:59 06:59 Intake Total 4591 Output Total 3550 400 Balance 1041 -400 Weight 125.917 kg 126.008 kg Lab Results: Accuchecks Date 04/03/16 Time 07:00 Accucheck Value: 177 Accucheck Value: 231 Accucheck Value: 344 Accucheck Value: 204 Lab Results-Last 24 Hours 04/02/16 04/02/16 04/02/16 Range/Units 08:29 08:30 21:02 WBC 16.7 H (4.0-10.5) K/mm3 RBC 4.69 (4.1-5.6) M/mm3 Hgb 14.4 (12.5-18.0) gm/dl Hct 44.3 (42-50) % MCV 94.5 (78-100) fl MCH 30.7 (26-32) pg MCHC 32.5 (32-36) g/dl RDW 13.9 (11.5-14.0) % Plt Count 253 (150-450) K/mm3 MPV 10.5 H (6-9.5) fl Segmented Neutrophils 73 H (36.-66.) % Band Neutrophils 2 (0.0-2.0) % Lymphocytes (Manual) 13 L (24-44) % Monocytes (Manual) 11 (0.0-12.0) % Eosinophils (Manual) (0.00-3.0) % Differential Comment Atypical Lymphocytes 1 % Platelet Estimate NORMAL (NORMAL) Sodium 135 L (136-145) mEq/L Potassium 4.3 (3.5-5.1) mEq/L Chloride 98 (98-107) mEq/L Carbon Dioxide 28.3 (21-32) mEq/L Anion Gap 13.0 (5-15) MEQ/L BUN 23 H (9-20) mg/dL Creatinine 1.13 (0.55-1.30) mg/dl Estimated GFR > 60 ML/MIN Glucose 193 H (70-110) MG/DL Calcium 8.1 L (8.5-10.1) mg/dL Total Bilirubin 0.5 (0.2-1.0) mg/dL AST 15 (15-37) U/L ALT 46 (12-78) U/L Alkaline Phosphatase 71 (46-116) U/L Troponin I < 0.017 (0.000-0.056) ng/ml Serum Total Protein 6.7 (6.4-8.2) gm/dL Albumin 3.3 L (3.4-5.0) g/dL Ur Collection Type CLEAN CATCH Urine Color YELLOW (YELLOW) Urine Appearance CLEAR (CLEAR) Urine pH 6.0 (5-6) Ur Specific [place] 1.015 (1.005-1.025) Urine Protein NEGATIVE (Negative) Urine Glucose (UA) 500 (NEGATIVE) mg/dL Urine Ketones NEGATIVE (NEGATIVE) Urine Nitrite NEGATIVE (NEGATIVE) Urine Bilirubin NEGATIVE (NEGATIVE) Urine Urobilinogen 0.2 (0-1) mg/dL Urine WBC (Auto) NEGATIVE (NEGATIVE) Urine RBC (Auto) TRACE-LYSED (0-5) Khurram/ul Urine Microscopic RBC 0-2 (0-2) /HPF Urine Microscopic WBC 0-2 (0-5) /HPF Urine Bacteria FEW (NEGATIVE) /HPF Specimen Received 04/02/16 2100 04/03/16 04/03/16 Range/Units 05:35 05:35 WBC 13.3 H (4.0-10.5) K/mm3 RBC 4.45 (4.1-5.6) M/mm3 Hgb 13.6 (12.5-18.0) gm/dl Hct 42.3 (42-50) % MCV 95.1 (78-100) fl MCH 30.6 (26-32) pg MCHC 32.2 (32-36) g/dl RDW 14.0 (11.5-14.0) % Plt Count 235 (150-450) K/mm3 MPV 10.2 H (6-9.5) fl Segmented Neutrophils 77 H (36.-66.) % Band Neutrophils (0.0-2.0) % Lymphocytes (Manual) 13 L (24-44) % Monocytes (Manual) 8 (0.0-12.0) % Eosinophils (Manual) 2 (0.00-3.0) % Differential Comment NORMAL Atypical Lymphocytes % Platelet Estimate NORMAL (NORMAL) Sodium 137 (136-145) mEq/L Potassium 4.3 (3.5-5.1) mEq/L Chloride 101 (98-107) mEq/L Carbon Dioxide 28.5 (21-32) mEq/L Anion Gap 11.9 (5-15) MEQ/L BUN 17 (9-20) mg/dL Creatinine 0.91 (0.55-1.30) mg/dl Estimated GFR > 60 ML/MIN Glucose 152 H (70-110) MG/DL Calcium 8.0 L (8.5-10.1) mg/dL Total Bilirubin (0.2-1.0) mg/dL AST (15-37) U/L ALT (12-78) U/L Alkaline Phosphatase (46-116) U/L Troponin I (0.000-0.056) ng/ml Serum Total Protein (6.4-8.2) gm/dL Albumin (3.4-5.0) g/dL Ur Collection Type Urine Color (YELLOW) Urine Appearance (CLEAR) Urine pH (5-6) Ur Specific [place] (1.005-1.025) Urine Protein (Negative) Urine Glucose (UA) (NEGATIVE) mg/dL Urine Ketones (NEGATIVE) Urine Nitrite (NEGATIVE) Urine Bilirubin (NEGATIVE) Urine Urobilinogen (0-1) mg/dL Urine WBC (Auto) (NEGATIVE) Urine RBC (Auto) (0-5) Khurram/ul Urine Microscopic RBC (0-2) /HPF Urine Microscopic WBC (0-5) /HPF Urine Bacteria (NEGATIVE) /HPF Specimen Received Multi-Disciplinary Progress Notes: Multi-Disciplinary Progress Notes 04/02/16 10:54 Case Management Note by Xin Eastman DISCHARGE PLAN REVIEWED. PT NORMALLY INDEPENDENT OF ALL ADL'S AND HAS NO NEEDS AT HOME, LIVES BY SELF. NO LAY CAREGIVER APPOINTED. NO NEEDS IDENTIFIED FOR HOME. WILL CONTINUE TO MONITOR FOR ALL D/C NEEDS. Initialized on 04/02/16 10:54 - END OF NOTE Assessment/Plan (1) Pneumonia Current Visit: Yes Status: Acute Qualifiers: Laterality: right Lung location: lower lobe of lung Assessment & Plan: Continue ceftriaxone and azithromycin Day 2 for both. Consult radiation protection engineer, Dr. Tasha Layton, who sees him on a regular basis. Continue oxygen. RT reports they tried to wean him from 4 L without success. Code(s): J18.9 - PNEUMONIA, UNSPECIFIED ORGANISM (2) COPD exacerbation Current Visit: No Status: Acute Assessment & Plan: Continue with oral prednisone and antibiotics, oxygen and breathing treatments. Code(s): J44.1 - CHRONIC OBSTRUCTIVE PULMONARY DISEASE W (ACUTE) EXACERBATION (3) Edema Current Visit: Yes Status: Acute Assessment & Plan: check BNP and cardiac echo. Small pericardial effusion on abdominal CT. Code(s): R60.9 - EDEMA, UNSPECIFIED (4) Chest wall contusion Current Visit: Yes Status: Acute (5) Hyperglycemia Current Visit: Yes Status: Acute Assessment & Plan: Continue low dose sliding scale of insulin. Code(s): R73.9 - HYPERGLYCEMIA, UNSPECIFIED
[2016-04-03] MEDS: DILAUDID 2 MG INJECTION IV PRN ×4 (09:40→23:15)
[2016-04-03] MEDS: Mucinex 600MG ER Tabs PO SCH (15:28)
[2016-04-03] MEDS: NovoLOG Insulin SQ PRN ×2 (16:16→21:56)
[2016-04-03] MEDS: ZOCOR 20MG PO SCH (21:53)
[2016-04-03] MEDS: ROCEPHIN 1 Gm-D5w 50 ml Bag** 50 ML IV SCH (21:54)
[2016-04-03] MEDS: Zithromax 500 MG/ 250 ML NaCl Premix 250 ML IV SCH (22:41)
[2016-04-04] MEDS: DUONEB 0.5-3 MG/3 ml Neb IH SCH ×5 (03:12→19:53)
[2016-04-04] MEDS: DILAUDID 2 MG INJECTION IV PRN ×3 (03:44→17:18)
[2016-04-04 05:46] LABS: Mean Cell Volume 95.5 fl (78-100); Mean Corpuscular Hemoglobin 30.7 pg (26-32); Mean Platelet Volume 10.2 fl (6-9.5); Platelet Count 268 K/mm3 (150-450); Red Blood Count 4.46 M/mm3 (4.1-5.6); White Blood Count 17.8 K/mm3 (4.0-10.5)
[2016-04-04 06:06] LABS: ANION GAP 15.5 MEQ/L (5-15); BLOOD UREA NITROGEN 18 mg/dL (9-20); CHLORIDE 98 mEq/L (98-107); Carbon Dioxide 26.9 mEq/L (21-32); Glucose 131 MG/DL (70-110); Potassium 4.1 mEq/L (3.5-5.1); SODIUM 136 mEq/L (136-145)
[2016-04-04 06:07] LABS: Total Cells Counted 100
[2016-04-04 06:08] LABS: ANISOCYTOSIS 1+; Platelet Estimate NORMAL (NORMAL); Poikilocytosis 1+
[2016-04-04] MEDS: Advair Hfa 115/21 Common canister IH SCH ×2 (06:59→19:53)
[2016-04-04] MEDS: MAG-OX 400 PO SCH (08:43)
[2016-04-04] MEDS: Flonase NASAL NS SCH (08:43)
[2016-04-04] MEDS: ZYLOPRIM 300 MG PO SCH (08:43)
[2016-04-04] MEDS: Cozaar 50 MG PO SCH (08:43)
[2016-04-04] MEDS: Singulair 10 MG PO SCH (08:43)
[2016-04-04] MEDS: PROTONIX 40 MG IV IV SCH (08:43)
[2016-04-04] MEDS: CLARITIN 10 MG PO SCH (08:44)
[2016-04-04] MEDS: DELTASONE 10 MG PO SCH (08:48)
--- NOTE | 2016-04-04 08:51 | PCM.NOTE ---
Date and Time: 04/04/16845 Subjective Assessment: He continues to have a cough and right sided chest wall/flank pain with bruising. He has trouble finding a comfortable position. He is trying to use his incentive spirometry and his oxygen was decreased from 4 L NC to 3 L NC since yesterday. He has been eating ok. He is trying to watch his diet. He reports some loose stools that just stated. He has some mild lower extremity edema. - Review of Systems Constitutional: No Symptoms Eyes: No Symptoms Ears, Nose, & Throat: No Symptoms Respiratory: Cough, Short Of Breath, Other (chest wall pain) Cardiac: No Symptoms Abdominal/Gastrointestinal: Diarrhea, No Abdominal Pain, No Nausea, No Vomiting Genitourinary Symptoms: No Symptoms Skin: Other (extensive brusing of right side) Psychological: No Symptoms Objective Exam General Appearance: no apparent distress, obese, other (on oxygen by NC) Neurologic Exam: alert, cooperative, normal mood/affect Skin Exam: normal color, warm, dry, other (extensive brusing of right side of abdomen now past umbilicus), No rash Respiratory Exam: other (talking in full sentences, decreased breath sounds on the lower right), No respiratory distress, No crackles/rales, No rhonchi, No wheezing Cardiovascular Exam: regular rate/rhythm, normal heart sounds, No murmur, No friction rub, No gallop Gastrointestinal/Abdomen Exam: soft, normal bowel sounds, distention, No tenderness, No mass, No guarding Extremity Exam: other (trace edema bilat, no c/c) OBJECTIVE DATA Vital Signs: Vital Signs - 24 hr Temp Pulse Resp BP Pulse Ox 04/04/16 07:23 98.0 F 83 18 148/67 97 04/04/16 07:00 76 18 97 04/04/16 04:00 97.9 F 88 20 123/71 95 04/04/16 03:12 88 20 95 04/04/16 03:00 95 04/04/16 00:00 98.3 F 101 H 20 135/68 97 04/03/16 22:54 101 H 20 97 04/03/16 20:00 98.7 F 104 H 21 166/79 96 04/03/16 18:00 107 H 18 96 04/03/16 16:00 20 04/03/16 15:53 97.9 F 105 H 20 164/71 94 L 04/03/16 14:00 99 H 20 96 04/03/16 12:00 21 04/03/16 11:39 97.4 F 100 H 21 135/63 93 L 04/03/16 10:00 91 H 18 93 L 04/03/16 08:59 91 H 20 94 L Oxygen-Last 24 hours O2 Percentage 3 Liters = 32% O2 Percentage 3 Liters = 32% O2 Percentage 3 Liters = 32% O2 Percentage 4 Liters = 36% O2 Percentage 4 Liters = 36% Pain Assessment - Last Documented Pain Intensity 5 Pain Scale Used 0-10 Pain Scale Intake and Output: Intake & Output 04/02/16 04/03/16 04/04/16 04/05/16 06:59 06:59 06:59 06:59 Intake Total 600 Output Total 2950 Balance -2350 Weight 125.191 kg Lab Results: Accuchecks Date 04/04/16 Date 04/03/16 Date 04/03/16 Date 04/03/16 Time 07:30 Time 16:17 Time 11:39 Accucheck Value: 125 Accucheck Value: 272 Accucheck Value: 268 Accucheck Value: 194 Lab Results-Last 24 Hours 04/04/16 04/04/16 Range/Units 05:41 05:41 WBC 17.8 H (4.0-10.5) K/mm3 RBC 4.46 (4.1-5.6) M/mm3 Hgb 13.7 (12.5-18.0) gm/dl Hct 42.6 (42-50) % MCV 95.5 (78-100) fl MCH 30.7 (26-32) pg MCHC 32.2 (32-36) g/dl RDW 14.0 (11.5-14.0) % Plt Count 268 (150-450) K/mm3 MPV 10.2 H (6-9.5) fl Segmented Neutrophils 84 H (36.-66.) % Lymphocytes (Manual) 12 L (24-44) % Monocytes (Manual) 4 (0.0-12.0) % Platelet Estimate NORMAL (NORMAL) Poikilocytosis 1+ Anisocytosis 1+ Sodium 136 (136-145) mEq/L Potassium 4.1 (3.5-5.1) mEq/L Chloride 98 (98-107) mEq/L Carbon Dioxide 26.9 (21-32) mEq/L Anion Gap 15.5 H (5-15) MEQ/L BUN 18 (9-20) mg/dL Creatinine 1.06 (0.55-1.30) mg/dl Estimated GFR > 60 ML/MIN Glucose 131 H (70-110) MG/DL Calcium 8.4 L (8.5-10.1) mg/dL Radiology Exams: Radiology Procedures Category Date Time Status CHEST 2 VIEWS (PA AND LAT) Routine Exams 04/04/16 08:45 Ordered ECHO W/2D AND DOPPLER [US] Routine Exams 04/03/16 08:58 Taken Assessment/Plan (1) Pneumonia Current Visit: Yes Status: Acute Qualifiers: Laterality: right Lung location: lower lobe of lung Assessment & Plan: Continue IV antibiotics, ceftriaxone and azithromycin, Day 3 for both. Helicopter Repairer, Dr. Tasha Madrid consulted and plans to see patient. Repeat chest X-ray today with WBC being higher today than yesterday. Code(s): J18.9 - PNEUMONIA, UNSPECIFIED ORGANISM (2) COPD exacerbation Current Visit: No Status: Acute Assessment & Plan: Continue to try to wean oral steroids. Continue with IV antibiotics. Continue oxygen and breathing treatments. Code(s): J44.1 - CHRONIC OBSTRUCTIVE PULMONARY DISEASE W (ACUTE) EXACERBATION (3) Edema Current Visit: Yes Status: Acute Assessment & Plan: BNP was normal. Echo taken but not read yet. Code(s): R60.9 - EDEMA, UNSPECIFIED (4) Chest wall contusion Current Visit: Yes Status: Acute (5) Hyperglycemia Current Visit: Yes Status: Acute Assessment & Plan: Improving. Will decrease steroids some again today. Code(s): R73.9 - HYPERGLYCEMIA, UNSPECIFIED
--- NOTE | 2016-04-04 09:16 | XRAY ---
Indication: Pneumonia. Comparison: April 02, 2016 PA/lateral chest today hyperinflated again with right base infiltrate/atelectasis minimally improved. Remaining lungs clear. Heart is not enlarged. No new cardiopulmonary abnormalities.
--- NOTE | 2016-04-04 11:56 | ECHO ---
Transthoracic echocardiographic examination and color Doppler was done on 04/03/2016. INDICATION: Shortness of breath, hypertension, chronic obstructive pulmonary disease. The study was somewhat limited because of a limited acoustic window. The left ventricle was only partially visualized. The estimated global left ventricular ejection fraction is around 50 to 60%. The tissue Doppler study of the lateral mitral annulus is suggestive of left ventricular diastolic dysfunction. The mitral valve appears to be normal. The aortic valve was not well visualized. The right side chambers appears to be grossly normal. IMPRESSION: THIS IS A LIMITED STUDY WHICH PRECLUDES ADEQUATE ASSESMENT OF INTRACARDIAC ANATOMY AND PHYSIOLOGY.
[2016-04-04] MEDS: NovoLOG Insulin SQ PRN (17:18)
[2016-04-05] MEDS: ROCEPHIN 1 Gm-D5w 50 ml Bag** 50 ML IV SCH ×2 (00:05→22:35)
[2016-04-05] MEDS: ZOCOR 20MG PO SCH ×2 (00:06→22:35)
[2016-04-05] MEDS: Mucinex 600MG ER Tabs PO SCH ×2 (00:09→09:47)
[2016-04-05] MEDS: Zithromax 500 MG/ 250 ML NaCl Premix 250 ML IV SCH ×2 (00:36→23:20)
[2016-04-05] MEDS: DUONEB 0.5-3 MG/3 ml Neb IH SCH ×7 (01:22→23:06)
[2016-04-05] MEDS: DILAUDID 2 MG INJECTION IV PRN ×3 (03:04→20:16)
[2016-04-05 05:55] LABS: Mean Corpuscular Hemoglobin 30.5 pg (26-32); Mean Platelet Volume 10.1 fl (6-9.5); Platelet Count 264 K/mm3 (150-450); Red Blood Count 4.23 M/mm3 (4.1-5.6); White Blood Count 15.3 K/mm3 (4.0-10.5)
[2016-04-05 06:18] LABS: ANION GAP 14.1 MEQ/L (5-15); BLOOD UREA NITROGEN 18 mg/dL (9-20); CHLORIDE 100 mEq/L (98-107); Carbon Dioxide 27.3 mEq/L (21-32); Glucose 140 MG/DL (70-110); Potassium 4.1 mEq/L (3.5-5.1); SODIUM 137 mEq/L (136-145)
[2016-04-05] MEDS: Advair Hfa 115/21 Common canister IH SCH ×2 (06:47→19:02)
[2016-04-05 07:02] LABS: ANISOCYTOSIS 1+; Eosinophil 1 % (0.00-3.0); Platelet Estimate NORMAL (NORMAL); Poikilocytosis 1+; Total Cells Counted 100
[2016-04-05] MEDS: Singulair 10 MG PO SCH (09:47)
[2016-04-05] MEDS: ZYLOPRIM 300 MG PO SCH (09:47)
[2016-04-05] MEDS: PROTONIX 40 MG IV IV SCH (09:47)
[2016-04-05] MEDS: DELTASONE 10 MG PO SCH (09:47)
[2016-04-05] MEDS: MAG-OX 400 PO SCH (09:48)
[2016-04-05] MEDS: Cozaar 50 MG PO SCH (09:48)
[2016-04-05] MEDS: Flonase NASAL NS SCH (09:48)
[2016-04-05] MEDS: CLARITIN 10 MG PO SCH (09:48)
[2016-04-05] MEDS: Tussionex Pennkinetic Susp PO PRN ×2 (09:55→22:35)
[2016-04-05] MEDS: Pain Relieving Rub TOP PRN (16:52)
[2016-04-05] MEDS: NovoLOG Insulin SQ PRN ×2 (16:52→22:36)
--- NOTE | 2016-04-05 18:25 | PCM.NOTE ---
Date and Time: 04/05/161821 Subjective Assessment: He was able to be weaned off the oxygen last night. He continues to have a lot of flank pain on the right side anytime he coughs and his bruise is expanding. - Review of Systems Constitutional: No Symptoms Eyes: No Symptoms Ears, Nose, & Throat: No Symptoms Respiratory: Cough, Short Of Breath Cardiac: No Symptoms Abdominal/Gastrointestinal: Other (flank pain on right, point tenderness over right lower ribs.) Skin: Other (large ecchymosis on right) Objective Exam General Appearance: no apparent distress, obese Neurologic Exam: alert, cooperative, normal mood/affect Skin Exam: normal color, warm, dry, other (large ecchymosis on right flank extending past umbilicus.) Respiratory Exam: normal breath sounds, lungs clear, other (Distant breath sounds), No crackles/rales, No rhonchi, No wheezing Cardiovascular Exam: regular rate/rhythm, normal heart sounds, No murmur, No friction rub, No gallop Gastrointestinal/Abdomen Exam: soft, normal bowel sounds, distention, No tenderness, No mass, No guarding Extremity Exam: normal inspection, other (no c/c/e) OBJECTIVE DATA Vital Signs: Vital Signs - 24 hr Temp Pulse Resp BP Pulse Ox 04/05/16 16:00 98.4 F 102 H 20 124/57 92 L 04/05/16 14:05 105 H 20 93 L 04/05/16 11:52 98.3 F 106 H 22 129/58 92 L 04/05/16 10:17 101 H 20 94 L 04/05/16 07:54 98 F 83 20 139/73 92 L 04/05/16 06:53 87 20 94 L 04/05/16 04:00 98.1 F 83 20 127/66 94 L 04/05/16 03:15 80 22 95 04/05/16 03:00 94 L 04/05/16 00:00 97.6 F 89 24 140/65 93 L 04/04/16 20:00 98.2 F 92 H 20 137/64 93 L 04/04/16 19:57 98 H 18 95 Oxygen-Last 24 hours O2 Percentage 2 Liters = 28% O2 Percentage 1 Liter = 24% O2 Percentage 1 Liter = 24% Pain Assessment - Last Documented Pain Intensity 0 Pain Scale Used 0-10 Pain Scale Intake and Output: Intake & Output 04/03/16 04/04/16 04/05/16 04/06/16 06:59 06:59 06:59 06:59 Intake Total 600 1760 Output Total 7201 3061 5935 Balance -9450 -9475 -1906 Weight 125.191 kg 123.831 kg 123.831 kg Lab Results: Accuchecks Date 04/05/16 Time 16:30 Accucheck Value: 226 Accucheck Value: 192 Accucheck Value: 123 Accucheck Value: 179 Lab Results-Last 24 Hours 04/05/16 04/05/16 Range/Units 05:30 05:30 WBC 15.3 H (4.0-10.5) K/mm3 RBC 4.23 (4.1-5.6) M/mm3 Hgb 12.9 (12.5-18.0) gm/dl Hct 40.6 L (42-50) % MCV 96.0 (78-100) fl MCH 30.5 (26-32) pg MCHC 31.8 L (32-36) g/dl RDW 14.0 (11.5-14.0) % Plt Count 264 (150-450) K/mm3 MPV 10.1 H (6-9.5) fl Segmented Neutrophils 87 H (36.-66.) % Lymphocytes (Manual) 9 L (24-44) % Monocytes (Manual) 3 (0.0-12.0) % Eosinophils (Manual) 1 (0.00-3.0) % Platelet Estimate NORMAL (NORMAL) Poikilocytosis 1+ Anisocytosis 1+ Sodium 137 (136-145) mEq/L Potassium 4.1 (3.5-5.1) mEq/L Chloride 100 (98-107) mEq/L Carbon Dioxide 27.3 (21-32) mEq/L Anion Gap 14.1 (5-15) MEQ/L BUN 18 (9-20) mg/dL Creatinine 0.96 (0.55-1.30) mg/dl Estimated GFR > 60 ML/MIN Glucose 140 H (70-110) MG/DL Calcium 8.4 L (8.5-10.1) mg/dL Radiology Exams: Radiology Procedures Category Date Time Status CHEST 2 VIEWS (PA AND LAT) Routine Exams 04/04/16 08:45 Completed Impressions Echocardiogram Ultrasound 04/03/16 08:58 IMPRESSION: THIS IS A LIMITED STUDY WHICH PRECLUDES ADEQUATE ASSESMENT OF INTRACARDIAC ANATOMY AND PHYSIOLOGY. Assessment/Plan (1) Pneumonia Current Visit: Yes Status: Acute Qualifiers: Laterality: right Lung location: lower lobe of lung Assessment & Plan: Continue current IV antibiotics. Dr. Tasha Madrid has been consulted. Continue breathing treatments. Will try tussionex cough medication. Code(s): J18.9 - PNEUMONIA, UNSPECIFIED ORGANISM (2) COPD exacerbation Current Visit: No Status: Acute Assessment & Plan: Continue oral steroids and IV antibiotics. Code(s): J44.1 - CHRONIC OBSTRUCTIVE PULMONARY DISEASE W (ACUTE) EXACERBATION (3) Edema Current Visit: Yes Status: Acute Assessment & Plan: Improving. Code(s): R60.9 - EDEMA, UNSPECIFIED (4) Chest wall contusion Current Visit: Yes Status: Acute (5) Hyperglycemia Current Visit: Yes Status: Acute Code(s): R73.9 - HYPERGLYCEMIA, UNSPECIFIED
[2016-04-06] MEDS: DUONEB 0.5-3 MG/3 ml Neb IH SCH ×3 (02:36→10:22)
[2016-04-06 05:53] LABS: Mean Cell Volume 96.1 fl (78-100); Mean Corpuscular Hemoglobin 30.8 pg (26-32); Platelet Count 265 K/mm3 (150-450); Red Blood Count 4.15 M/mm3 (4.1-5.6); Red Cell Distribution Width 13.9 % (11.5-14.0); White Blood Count 17.5 K/mm3 (4.0-10.5)
[2016-04-06 06:09] LABS: ANION GAP 13.6 MEQ/L (5-15); BLOOD UREA NITROGEN 18 mg/dL (9-20); CHLORIDE 102 mEq/L (98-107); Carbon Dioxide 28.7 mEq/L (21-32); Glucose 141 MG/DL (70-110); Potassium 5.1 mEq/L (3.5-5.1); SODIUM 139 mEq/L (136-145)
[2016-04-06] MEDS: Advair Hfa 115/21 Common canister IH SCH (07:10)
[2016-04-06 07:24] LABS: Total Cells Counted 100
[2016-04-06 07:25] LABS: ANISOCYTOSIS 1+; Platelet Estimate NORMAL (NORMAL); Poikilocytosis 1+
--- NOTE | 2016-04-06 07:40 | CONS ---
CONSULT DATE: 04/05/2016 REASON FOR CONSULTATION: Chronic obstructive pulmonary disease exacerbation and large abdominal wall ecchymosis. HISTORY: The history is obtained from reviewing current records and discussion with patient. Delta Moseley is a 60 year-old male with history of chronic obstructive pulmonary disease, well known to me who has been experiencing some cough, shortness of breath that got progressively worse. The patient reports that he felt something pop on the right side of his chest and subsequently developed a large bruise which has extended to anterior abdominal wall. The patient has been hospitalized for the last two days and has been treated for chronic obstructive pulmonary disease exacerbation. He reports significant pleuritic pain particularly upon coughing. The patient denies any trauma to the chest wall and has not been on any anticoagulants. PAST MEDICAL HISTORY: Positive for chronic obstructive pulmonary disease, obstructive sleep apnea, hypertension, hyperlipidemia. PAST SURGICAL HISTORY: Teeth extraction. PERSONAL AND SOCIAL HISTORY: The patient was a former smoker. MEDICATIONS: Home and current medications are reviewed. ALLERGIES: PENICILLIN THAT LEADS TO ANAPHYLAXIS. PHYSICAL EXAMINATION: A middle aged male who appears much more comfortable, able to speak without difficulty. Vital signs noted. HEENT: Normocephalic. Pupils are reactive. Oral exam shows small oropharynx. NECK: Supple. CVS: First and second heart sounds are normal, regular, rhythmic. RESPIRATORY: Shows diminished breath sounds. Rhonchi are heard. ABDOMEN: Soft, obese, a large area of ecchymosis is noted. EXTREMITIES: Trace edema noted. LABORATORY DATA AND TESTS: White blood cell count 15.3, hemoglobin 12.9, hematocrit 40.4 and PLT 264,000. Sodium 137, potassium 4.1, chloride 100, bicarb 27, glucose 140, BUN 18, creatinine 0.9. Sputum culture pending. A1C is 6.7. Chest x-ray noted. CT abdomen shows right lower lobe infiltrate with effusion. CT chest shows old granulomatous disease. ASSESSMENT: This is a 60 year old male admitted with: 1) Chronic obstructive pulmonary disease exacerbation. 2) Acute bronchitis possibly exacerbated by post-nasal drip. 3) Large anterior chest wall ecchymosis possibly from rib cracking with trauma to vessel underlying the rib although without significant drop in hemoglobin. 4) Obesity. 5) Obstructive sleep apnea. RECOMMENDATIONS: I discussed with the patient adequate pain control, would recommend this for at least three to four weeks. Advised him regarding using pillow as a splint to his chest wall during coughing. Continue bronchodilators. Continue treatment of pneumonia with antibiotics. Continue supportive care. I will follow up in office setting. Thank you for allowing me to participate in the care of Delta Moseley.
[2016-04-06] MEDS: DELTASONE 10 MG PO SCH (08:21)
[2016-04-06] MEDS: Cozaar 50 MG PO SCH (08:21)
[2016-04-06] MEDS: ZYLOPRIM 300 MG PO SCH (08:21)
[2016-04-06] MEDS: MAG-OX 400 PO SCH (08:21)
[2016-04-06] MEDS: CLARITIN 10 MG PO SCH (08:21)
[2016-04-06] MEDS: Singulair 10 MG PO SCH (08:21)
[2016-04-06] MEDS: PROTONIX 40 MG IV IV SCH (08:21)
[2016-04-06] MEDS: DILAUDID 2 MG INJECTION IV PRN (08:22)
[2016-04-06] MEDS: Tussionex Pennkinetic Susp PO PRN (08:22)
[2016-04-06] MEDS: Pain Relieving Rub TOP PRN (08:22)
[2016-04-06] MEDS: Flonase NASAL NS SCH (08:22)
--- NOTE | 2016-04-06 09:46 | PCM.DCORD ---
- Discharge Discharge Date: 04/06/16 Disposition: Home, Self-Care Condition: Fair Prescriptions: New Methyl Salicylate/Menthol [Analgesic [place]] 10 gm TP TID PRN #85 oint...g. PRN Reason: Pain Hydrocodone Bit/Acetaminophen [Anexsia 7.5-650 Tablet] 1 each PO TID PRN #40 tablet PRN Reason: Pain Sulfamethoxazole/Trimethoprim [Bactrim Ds Tablet] 1 each PO BID #14 tablet Prednisone 20 mg [Deltasone 20 mg] 20 mg PO DAILY #7 tablet Continue Magnesium Oxide 400 mg [Mag-Ox 400] 400 mg PO DAILY Simvastatin 20 mg PO HS Metformin HCl Xr 500 mg [Glucophage XR 500 MG] 500 mg PO DAILY Allopurinol 300 mg [Zyloprim 300 mg] 300 mg PO DAILY Albuterol 2.5 mg/3 ml Neb [Proventil 2.5 mg/3 ml Neb] 2.5 mg IH QID Losartan Potassium [Cozaar] 100 mg PO DAILY Montelukast Sodium 10 mg PO DAILY Loratadine 10 mg [Claritin 10 mg] 10 mg PO DAILY Fluticasone/Salmeterol 115/21 [Advair Hfa 115/21 Common canister*] 2 puff IH BIDRT Guaifenesin [Mucus Relief] 400 mg PO Q4H PRN PRN PRN Reason: Chest congestion Fluticasone Propionate [Flonase NASAL] 2 sprays NS DAILY Umeclidinium [place] [Incruse Ellipta] 1 puff IH DAILY Discontinued Prednisone 10 mg [Deltasone 10 mg] 10 mg PO UD Follow up with: ELENO RICHARDS [Primary Care Provider] - 04/14/16 1:15 pm SHUBHAM RODRIGES [ACTIVE STAFF] - 1 Week Forms: Patient Portal Information
[2016-04-06 11:17] VITALS: BP 119/66; PULSE 95; O2SAT 90
--- NOTE | 2016-04-06 13:13 | DS ---
DISCHARGE DIAGNOSES: 1) RIGHT LOWER LOBE PNEUMONIA WITH METHICILLIN RESISTANT STAPHYLOCOCCUS AUREUS IN THE SPUTUM CULTURE. 2) CHRONIC OBSTRUCTIVE PULMONARY DISEASE EXACERBATION. 3) EDEMA. 4) CHEST WALL CONTUSION. 5) DIABETES MELLITUS TYPE 2. DISCHARGE PHYSICAL EXAMINATION: VITALS: Temperature current 97.9F, temperature max 98.2F, heart rate 78 to 108, respiratory rate 16 to 22, blood pressure 120 to 167 over 51 to 90. Oxygen saturation 92 to 97% on room air. GENERAL: The patient is pleasant talkative man sitting up in no acute distress. He reports he still has some right-sided chest wall pain. CVS: He has a regular rate and rhythm. CHEST: Breath sounds are distant. No crackles or wheezes are appreciated. ABDOMEN: Distended which is normal for him with normal bowel sounds. No guarding. No rigidity. No tenderness. SKIN: He has extensive ecchymosis from his right side coming across and past his umbilicus to left lower flank encircling around the right side of his back. EXTREMITIES: Lower extremities trace edema. No clubbing. No cyanosis. HOSPITAL COURSE: 1) Right lower lobe pneumonia. He was started on ceftriaxone and azithromycin, these were continued throughout his hospitalization. He had a sputum culture that was growing gram positive organism on the day of his discharge identified as methicillin resistant staphylococcus aureus. I discussed the case with natural gas technician, Dr. Vishal Madrid who saw the patient yesterday. He instructed to send him home on Bactrim 1 tablet p.o. b.i.d. for 7 days. I will follow up with him in the clinic as well as Dr. Vishal Madrid. Clinically the patient had improved. He was off oxygen and able to ambulate without any problems. His white blood cell count continued to be elevated at 17,500. He is afebrile. 2) Chronic obstructive pulmonary disease exacerbation. He was initially was on IV steroids and these were changed to oral prednisone. I plan to finish out prednisone 20 mg p.o. daily, will continue with his breathing treatments at home. 3) Edema. He had an echo done which was technically difficult to read but the glass sander belt said his ejection fraction was approximately 60%. 4) Chest wall contusion. He continued to need IV pain medicine every once in a while here in the hospital. I plan to discharge him on hydrocodone/acetaminophen 7.5 mg every three hours as needed for two weeks and follow up with him in the clinic. 5) Diabetes mellitus type 2. His Metformin was held while he was in the hospital. He was given a low dose sliding scale of NovoLog. Will continue his Metformin as an outpatient. DISCHARGE MEDICATIONS: He may resume all of his home medications. He was also given a prescription for [place] to the chest wall contusion, Bactrim DS 1 tablet p.o. b.i.d. and hydrocodone 7.5 mg t.i.d. as needed for pain and prednisone 20 mg p.o. daily. FOLLOW UP: He is to follow up with me this coming week. DISPOSITION: The patient was discharged to home in fair condition.
== END 2016-04-06 12:50 | disposition home or self-care (01) | DRG 178 ==
LOC: ED 00:34 → MED SURG 03:39 → OBSVTOIN 04-03 08:30
PROVIDERS: ADMIT Family Medicine; ATTEND Internal Medicine
DX: J15.212 Pneumonia due to Methicillin resistant Staphylococcus aureus (principal); J44.1 Chronic obstructive pulmonary disease with (acute) exacerbation; R60.9 Edema, unspecified; S20.211A Contusion of right front wall of thorax, initial encounter; I10 Essential (primary) hypertension; E11.65 Type 2 diabetes mellitus with hyperglycemia; Z79.4 Long term (current) use of insulin; E78.5 Hyperlipidemia, unspecified; J20.9 Acute bronchitis, unspecified; G47.33 Obstructive sleep apnea (adult) (pediatric); K21.9 Gastro-esophageal reflux disease without esophagitis; E66.9 Obesity, unspecified; Z79.899 Other long term (current) drug therapy
CPT/HCPCS: 36000; 36415; 36600; 71010; 71020; 74176; 80048; 80053; 81000; 82150; 82375; 82803; 82962; 83690; 83735; 83880; 84443; 84484; 85025; 85379; 85610; 85730; 87040; 87070; 87077; 93005; 93268; 93306; 94640; 94660; 94760; 96360; 96361; 96374; 96375; 96376; 99285; A9270; G0378; J0456; J0696; J1170; J2550; J7506

== ENCOUNTER 2016-06-05 00:09 | Emergency (ER) | payer MEDICARE ==
--- NOTE | 2016-06-05 00:52 | ERPHSYRPT ---
- History of Present Illness Time Seen by Provider: 06/05/16 00:47 Source: patient, other Exam Limitations: no limitations Patient Subjective Stated Complaint: pt states he has been having pain in his lt ribs, states he has had this problem since march and has been diagnosed with costrochondritis. sttes he has been coughing more recently and has been having increased pain. Triage Nursing Assessment: pt alert and oriented. answers questions approp. respirations nonlabored. pt ambulatory with steady gait noted. skin warm and dry. pt guarding lt side and c/o pain in lt ribs. lungs clear. Physician History: The patient is a 60-year-old male with a friend who complains of intermittent right sided rib pain that has been going on for several weeks. He has seen his doctor more than once for this. He has been given different pain medications that have helped for a few days, these include hydrocodone, meloxicam, and tizanidine. The patient has chronic cough and today the pain returned while he was coughing. He comes in wanting some pain relief. His past medical history is significant for high blood pressure, diabetes, high cholesterol, gout, and COPD. Timing/Duration: week(s) (several weeks) Severity: severe Modifying Factors: Improves With: medication Associated Symptoms: chest pain (with breathing) Allergies/Adverse Reactions: Penicillins Allergy (Verified 06/05/16 00:36) Home Medications: Albuterol 2.5 mg/3 ml Neb [Proventil 2.5 mg/3 ml Neb] 2.5 mg IH QID [History] Allopurinol 300 mg [Zyloprim 300 mg] 300 mg PO DAILY 03/25/16 [History] Losartan Potassium [Cozaar] 100 mg PO DAILY 03/25/16 [History] Magnesium Oxide 400 mg [Mag-Ox 400] 400 mg PO DAILY 03/25/16 [History] Metformin HCl Xr 500 mg [Glucophage XR 500 MG] 500 mg PO DAILY 03/25/16 [ History] Simvastatin 20 mg PO HS 03/25/16 [History] Fluticasone Propionate [Flonase NASAL] 2 sprays NS DAILY 04/02/16 [History ] Fluticasone/Salmeterol 115/21 [Advair Hfa 115/21 Common canister*] 2 puff IH BIDRT 04/02/16 [History] Loratadine 10 mg [Claritin 10 mg] 10 mg PO DAILY 04/02/16 [History] Montelukast Sodium 10 mg PO DAILY 04/02/16 [History] Umeclidinium [place] [Incruse Ellipta] 1 puff IH DAILY 04/02/16 [History] Meloxicam 7.5 mg [Mobic 7.5 MG] 7.5 mg PO BID 06/05/16 [History] Naproxen Sodium 220 mg PO BID 06/05/16 [History] Tizanidine HCl 4 mg [Zanaflex 4 MG] 4 mg PO TID 06/05/16 [History] Hx Tetanus, Diphtheria Vaccination/Date Given: Yes Hx Influenza Vaccination/Date Given: Yes Hx Pneumococcal Vaccination/Date Given: Yes Immunizations Up to Date: Yes - Review of Systems Constitutional: No Fever, No Chills Eyes: No Symptoms Ears, Nose, & Throat: No Symptoms Respiratory: Cough Cardiac: Chest Pain Abdominal/Gastrointestinal: No Abdominal Pain, No Nausea, No Vomiting, No Diarrhea Genitourinary Symptoms: No Dysuria Musculoskeletal: No Back Pain, No Neck Pain Skin: No Symptoms Neurological: No Dizziness, No Focal Weakness, No Sensory Changes Psychological: No Symptoms Endocrine: No Symptoms Hematologic/Lymphatic: No Symptoms Immunological/Allergic: No Symptoms All Other Systems: Reviewed and Negative - Past Medical History Pertinent Past Medical History: Yes Neurological History: No Pertinent History ENT History: No Pertinent History Cardiac History: No Pertinent History Respiratory History: COPD, Emphysema Endocrine Medical History: Diabetes Type II GI Medical History: GERD Other Medical History: costochondritis - Past Surgical History Past Surgical History: Yes Other Surgical History: dental - Social History Smoking Status: Former smoker Exposure to second hand smoke: No Alcohol Use: None Drug Use: none Patient Lives Alone: Yes - Nursing Vital Signs Nursing Vital Signs: Initial Vital Signs Temperature 97.5 F Temperature Source Oral Pulse Rate 83 Respiratory Rate 22 Blood Pressure [Left Arm] 174/99 Pain Intensity 4 - Physical Exam General Appearance: moderate distress Eye Exam: PERRL/EOMI, eyes nml inspection Ears, Nose, Throat Exam: normal ENT inspection, TMs normal, pharynx normal, moist mucous membranes Neck Exam: normal inspection, non-tender, supple, full range of motion Respiratory Exam: normal breath sounds, chest tenderness (rilght lateral rib tenderness) Cardiovascular Exam: regular rate/rhythm, normal heart sounds, normal peripheral pulses Gastrointestinal/Abdomen Exam: soft, normal bowel sounds, No tenderness, No mass Rectal Exam: not done Back Exam: normal inspection, normal range of motion, No CVA tenderness, No vertebral tenderness Extremity Exam: normal inspection, normal range of motion, pelvis stable Neurologic Exam: alert, oriented x 3, cooperative, normal mood/affect, nml cerebellar function, nml station & gait, sensation nml, No motor deficits Skin Exam: normal color, warm, dry, No rash Lymphatic Exam: No adenopathy SpO2 Interpretation: normal SpO2: 96 Oxygen Delivery: Room Air - Radiology Exams Chest X-ray Interpretation: Interpreted by me, Negative, No Pneumothorax, Other ( Hyperinflated chest, No PTX, Improved right lung base infiltrate/atelecstasis. Comp CXR 04/04/16.) Right Ribs X-ray Interpretation: Interpreted by me, No Fracture, No Pneumothorax Ordered Tests: Active Orders 24 hr Category Date Time Status CHEST 2 VIEWS (PA AND LAT) Stat Exams 06/05/16 00:53 Ordered RIBS UNILATERAL Stat Exams 06/05/16 00:54 Ordered BMP Stat Lab 06/05/16 01:16 Completed CBC W DIFF Stat Lab 06/05/16 01:16 Completed Medication Summary Discontinued Medications Generic Name Dose Route Start Last Admin Trade Name Ericq PRN Reason Stop Dose Admin Morphine Sulfate 8 mg 06/05/16 00:53 06/05/16 01:07 Morphine Sulfate 10 Mg/Ml SQ 06/05/16 00:54 8 mg STAT ONE Administration Morphine Sulfate Confirm 06/05/16 01:02 Morphine Sulfate 10 Mg/Ml Administered 06/05/16 01:03 Dose 10 mg .ROUTE .STK-MED ONE Lab/Rad Data: Laboratory Result Diagrams 06/05/16 01:16 06/05/16 01:16 Laboratory Results 06/05/16 06/05/16 Range/Units 01:16 01:16 WBC 9.4 (4.0-10.5) K/mm3 RBC 4.81 (4.1-5.6) M/mm3 Hgb 15.1 (12.5-18.0) gm/dl Hct 45.7 (42-50) % MCV 95.0 (78-100) fl MCH 31.4 (26-32) pg MCHC 33.0 (32-36) g/dl RDW 14.0 (11.5-14.0) % Plt Count 243 (150-450) K/mm3 MPV 10.8 H (6-9.5) fl Gran % 69.2 H (36.0-66.0) % Lymphocytes % 17.8 L (24.0-44.0) % Monocytes % 10.1 (0.0-12.0) % Eosinophils % 2.6 (0.00-5.0) % Basophils % 0.3 (0.0-0.4) % Basophils # 0.03 (0-0.4) Sodium 139 (136-145) mEq/L Potassium 4.5 (3.5-5.1) mEq/L Chloride 102 (98-107) mEq/L Carbon Dioxide 24.6 (21-32) mEq/L Anion Gap 16.9 H (5-15) MEQ/L BUN 20 (9-20) mg/dL Creatinine 1.04 (0.55-1.30) mg/dl Estimated GFR > 60 ML/MIN Glucose 194 H (70-110) MG/DL Calcium 8.7 (8.5-10.1) mg/dL - Progress Progress: improved, pain not gone completely Counseled pt/family regarding: lab results, diagnosis, need for follow-up, rad results - Departure Time of Disposition: 02:06 Departure Disposition: Home Clinical Impression: Rib pain on right side Condition: Stable Critical Care Time: No Additional Instructions: You have right-sided rib pain. You were given an injection of morphine 8 mg in the ER. Take the [place] one to 2 tablets every 4-6 hours as needed. Follow-up in 2 days. Continue with the other medicines as directed. Use ice to the area 3-4 times a day. Prescriptions: Hydrocodone Bit/Acetaminophen [[place] 5-325 Tablet] 1 each PO Q4-6HPRN PRN #10 tablet PRN Reason: Pain
[2016-06-05] MEDS ORDERED: MORPHINE SULFATE 10 MG/ML SQ ONE (00:53)
[2016-06-05] MEDS ORDERED: MORPHINE SULFATE 10 MG/ML ONE (01:02)
[2016-06-05 01:19] LABS: BASOPHIL % 0.3 % (0.0-0.4); Eosinophil % 2.6 % (0.00-5.0); Granulocytes % 69.2 % (36.0-66.0); Lymphocytes % 17.8 % (24.0-44.0); Mean Corpuscular Hemoglobin 31.4 pg (26-32); Mean Platelet Volume 10.8 fl (6-9.5); Monocytes % 10.1 % (0.0-12.0); Platelet Count 243 K/mm3 (150-450); Red Blood Count 4.81 M/mm3 (4.1-5.6); White Blood Count 9.4 K/mm3 (4.0-10.5)
[2016-06-05 01:34] LABS: ANION GAP 16.9 MEQ/L (5-15); BLOOD UREA NITROGEN 20 mg/dL (9-20); CHLORIDE 102 mEq/L (98-107); Carbon Dioxide 24.6 mEq/L (21-32); Glucose 194 MG/DL (70-110); Potassium 4.5 mEq/L (3.5-5.1); SODIUM 139 mEq/L (136-145)
[2016-06-05] MEDS ORDERED: NORCO 5/325 MG PO ONE (02:08)
[2016-06-05] MEDS ORDERED: NORCO 5/325 MG ONE (02:12)
[2016-06-05 02:27] VITALS: BP 154/82; PULSE 78; O2SAT 94
--- NOTE | 2016-06-05 08:48 | XRAY ---
Indication: Right lower rib pain from coughing. Comparison: None 2 views of the right ribs demonstrates mild osteopenia, mild degenerative changes throughout the spine, and a a few pulmonary calcified granulomas. No other bony, articular, or soft tissue abnormalities.
--- NOTE | 2016-06-05 08:50 | XRAY ---
Indication: Right lower pain from coughing. Comparison: April 04, 2016. PA/lateral chest unchanged again hyperinflated with minimal bibasilar atelectasis/scarring and a few calcified granulomas. Remaining lungs clear. Heart is not enlarged. Bony thorax intact. Impression: Stable nonacute chest with chronic features.
== END 2016-06-05 02:27 | disposition home or self-care (01) ==
LOC: ED 00:09
DX: R07.81 Pleurodynia (principal); M94.0 Chondrocostal junction syndrome [Tietze]; Z79.84 Long term (current) use of oral hypoglycemic drugs; Z79.899 Other long term (current) drug therapy
CPT/HCPCS: 36415; 71020; 71100; 80048; 85025; 96372; 99284; J2270; A9270-GY

== ENCOUNTER 2016-09-23 18:05 | Emergency (ER) | payer MEDICARE ==
[2016-09-23] MEDS ORDERED: MORPHINE SULFATE 10 MG/ML IM ONE (19:18)
[2016-09-23] MEDS ORDERED: MORPHINE SULFATE 10 MG/ML ONE (19:25)
--- NOTE | 2016-09-23 19:26 | ERPHSYRPT ---
- History of Present Illness Time Seen by Provider: 09/23/16 19:14 Source: patient Exam Limitations: no limitations Patient Subjective Stated Complaint: Back pain, muslce spasm this am, back pain started 3-4 days ago. musle spasm this am, 1700 when severe pain started 9/10 when moving and 4/10 when sitting still constant pain. Triage Nursing Assessment: Alert and oriented x3, Weight bearing but limited rom , acted like in pain 9/10 Sensation in normal cap refill in <3 sec Physician History: 61-year-old white male with history of COPD emphysema and diabetes GERD costochondritis, Patient arrives with complaint of back pain for about 4 days began after lifting states that today he felt like something popped on his right anterior lateral chest he states he's been having severe pain since. Has pain on the right chest worse with breathing no shortness of breath no nausea no vomiting. Patient states he took Advil and a muscle relaxer before coming in. Patient has been seen in the past secondary to costochondritis his patient's inspect was reviewed . it appears patient was receiving narcotic analgesia in May of this year. Past medical history includes COPD, emphysema, diabetes, GERD, costochondritis Past surgical history includes dental surgery Timing/Duration: day(s), other (pain for 4 days worse today) Severity: moderate Modifying Factors: Improves With: other (lifting several days ago felt a pop right chest earlier) Associated Symptoms: chest pain, No nausea, No vomiting, No abdominal pain, No shortness of breath, No heartburn, No diaphoresis, No cough, No chills, No fever , No headaches, No loss of appetite, No malaise, No rash, No syncope, No seizure , No weakness Allergies/Adverse Reactions: Penicillins Allergy (Verified 06/05/16 00:36) Home Medications: Albuterol 2.5 mg/3 ml Neb [Proventil 2.5 mg/3 ml Neb] 2.5 mg IH QID [History] Allopurinol 300 mg [Zyloprim 300 mg] 300 mg PO DAILY 03/25/16 [History] Losartan Potassium [Cozaar] 100 mg PO DAILY 03/25/16 [History] Magnesium Oxide 400 mg [Mag-Ox 400] 400 mg PO DAILY 03/25/16 [History] Metformin HCl Xr 500 mg [Glucophage XR 500 MG] 500 mg PO DAILY 03/25/16 [ History] Simvastatin 20 mg PO HS 03/25/16 [History] Fluticasone Propionate [Flonase NASAL] 2 sprays NS DAILY 04/02/16 [History ] Fluticasone/Salmeterol 115/21 [Advair Hfa 115/21 Common canister*] 2 puff IH BIDRT 04/02/16 [History] Loratadine 10 mg [Claritin 10 mg] 10 mg PO DAILY 04/02/16 [History] Montelukast Sodium 10 mg PO DAILY 04/02/16 [History] Umeclidinium [place] [Incruse Ellipta] 1 puff IH DAILY 04/02/16 [History] Naproxen Sodium 220 mg PO BID 06/05/16 [History] Tizanidine HCl 4 mg [Zanaflex 4 MG] 4 mg PO TID PRN PRN 06/05/16 [History] Guaifenesin [Mucus ER] 600 mg PO BID 09/23/16 [History] Indomethacin 25 mg PO UD 09/23/16 [History] Prednisone 10 mg [Deltasone 10 mg] 10 mg PO UD 09/23/16 [History] Hx Tetanus, Diphtheria Vaccination/Date Given: Yes (last year) Hx Influenza Vaccination/Date Given: Yes (last year) Hx Pneumococcal Vaccination/Date Given: Yes (last year) - Review of Systems Constitutional: No Fever, No Chills Eyes: No Symptoms Ears, Nose, & Throat: No Symptoms Respiratory: Other (pain with breathing right chest), No Cough, No Cyanosis, No Dyspnea, No Dyspnea on Exertion ([place]), No Stridor, No Wheezing Cardiac: Chest Pain (pain with breathing right chest sharp), No Edema, No Palpitations, No Syncope, No Orthopnea, No PND Abdominal/Gastrointestinal: No Abdominal Pain, No Nausea, No Vomiting, No Diarrhea Genitourinary Symptoms: No Dysuria Musculoskeletal: Back Pain, No Arthralgias, No Neck Pain, No Deformity, No Fall , No Injury, No Joint Redness, No Joint Pain, No Joint Swelling, No Myalgias Skin: No Rash Neurological: No Dizziness, No Focal Weakness, No Sensory Changes Psychological: No Symptoms Endocrine: No Symptoms All Other Systems: Reviewed and Negative - Past Medical History Pertinent Past Medical History: Yes Neurological History: No Pertinent History ENT History: No Pertinent History Cardiac History: No Pertinent History Respiratory History: COPD, Emphysema Endocrine Medical History: Diabetes Type II GI Medical History: GERD Other Medical History: costochondritis - Past Surgical History Past Surgical History: Yes Other Surgical History: dental - Social History Smoking Status: Former smoker Exposure to second hand smoke: No Alcohol Use: None Drug Use: none Patient Lives Alone: Yes - Nursing Vital Signs Nursing Vital Signs: Initial Vital Signs Temperature 98.8 F Temperature Source Oral Pulse Rate 87 Respiratory Rate 18 Blood Pressure [] 145/82 Pain Intensity [] 9 Pain Intensity 10 - Physical Exam General Appearance: moderate distress Eye Exam: PERRL/EOMI, eyes nml inspection Ears, Nose, Throat Exam: normal ENT inspection, TMs normal, pharynx normal, moist mucous membranes Neck Exam: normal inspection, non-tender, supple, full range of motion Respiratory Exam: normal breath sounds, lungs clear, No respiratory distress Cardiovascular Exam: regular rate/rhythm, normal heart sounds, normal peripheral pulses Gastrointestinal/Abdomen Exam: soft, normal bowel sounds, No tenderness, No mass Back Exam: normal inspection, normal range of motion, No CVA tenderness, No vertebral tenderness Extremity Exam: normal inspection, normal range of motion, pelvis stable Neurologic Exam: alert, oriented x 3, cooperative, normal mood/affect, nml cerebellar function, nml station & gait, sensation nml, No motor deficits Skin Exam: normal color Lymphatic Exam: No adenopathy SpO2 Interpretation: normal (ear94%) SpO2: 94 Oxygen Delivery: Room Air - Course Nursing assessment & vital signs reviewed: Yes EKG Interpreted by Me: RATE (81 bpm), Sinus Rhythm, NORMAL AXIS, Other (EKG, sinus rhythm 81 bpmS< AXISI/QIII pattern, no acute ST or T wave changes as compared to April 02, 2016) - Radiology Exams Chest X-ray Interpretation: Interpreted by me, Other (no pneumothorax, chronic atelectasis right lung base improved from previous) Ordered Tests: Active Orders 24 hr Category Date Time Status EKG-ER Only STAT Care 09/23/16 19:19 Active CHEST 2 VIEWS (PA AND LAT) Stat Exams 09/23/16 19:18 Taken Medication Summary Discontinued Medications Generic Name Dose Route Start Last Admin Trade Name Jessica PRN Reason Stop Dose Admin Morphine Sulfate 8 mg 09/23/16 19:18 09/23/16 19:27 Morphine Sulfate 10 Mg/Ml IM 09/23/16 19:19 8 mg STAT ONE Administration Morphine Sulfate Confirm 09/23/16 19:25 Morphine Sulfate 10 Mg/Ml Administered 09/23/16 19:26 Dose 10 mg .ROUTE .STK-MED ONE - Progress Progress: improved Progress Note: 09/23/16 19:59 61-year-old white male arrives with complaint of back pain for 4 days states he was felt a pop in his right chest today and felt pain in his right chest. Patient has been seen in the past for similar complaints has a history of costochondritis patient does have a history of COPD and asthma. Patient is given morphine 8 mg IM with improvement I've offered the patient a DuoNeb treatment however he does not want this. Chest x-ray no pneumothorax chronic atelectasis right base improved from previous. EKG normal sinus rhythm no acute ST or T wave changes. Will go ahead and discharge patient with [place] for pain patient will need to follow-up with his family doctor. Will place patient onZithromax Z-PAKas well. 09/23/16 20:02 - Departure Time of Disposition: 20:00 Departure Disposition: Home Clinical Impression: Chest wall pain, Chronic bronchitis with COPD (chronic obstructive pulmonary disease) Condition: Fair Critical Care Time: No Referrals: ELENO RICHARDS [Primary Care Provider] - Additional Instructions: Return home, Use your inhalers as prescribed by your family doctor. [place] 5/325 one orally every 4-6 hours as needed for pain #15. Zithromax [id number] as directed. Follow-up with your family doctor. Return for acute distress or for severe symptoms. Prescriptions: Azithromycin 250 mg [Zithromax 250 MG TABLET] 0 mg PO ZPACK #6 tablet Hydrocodone/Acetaminophen [[place] 5-325 Tablet] 1 tab PO Q4-6HPRN PRN #15 tablet PRN Reason: Pain
[2016-09-23] MEDS ORDERED: Zithromax 250 MG TABLET PO ONE (20:37)
[2016-09-23] MEDS ORDERED: NORCO 5/325 MG PO ONE (20:37)
[2016-09-23] MEDS ORDERED: Zithromax 250 MG TABLET ONE (20:40)
[2016-09-23] MEDS ORDERED: NORCO 5/325 MG ONE (20:41)
[2016-09-23 20:55] VITALS: BP 140/80; PULSE 83; O2SAT 92
--- NOTE | 2016-09-24 09:38 | XRAY ---
Indication: Right-sided pain. Comparison: June 05, 2016. PA/lateral chest again demonstrates hyperinflated lungs with minimal bibasilar atelectasis/scarring. Upper lungs clear. Heart is not enlarged. New minimally displaced right 7th/8th rib fractures. Comment: Rib fractures not reported on preliminary interpretation by the ER clinician. I gave telephone report to Dr. Bocanegra at 0950 hrs. on September 24, 2016.
== END 2016-09-23 20:54 | disposition home or self-care (01) ==
LOC: ED 18:05
DX: R07.89 Other chest pain (principal); J42 Unspecified chronic bronchitis; J44.9 Chronic obstructive pulmonary disease, unspecified; E11.9 Type 2 diabetes mellitus without complications; K21.9 Gastro-esophageal reflux disease without esophagitis; M94.0 Chondrocostal junction syndrome [Tietze]
CPT/HCPCS: 71020; 93005; 96372; 99284; J2270; A9270-GY

== ENCOUNTER 2017-01-09 06:01 | Day surgery (SDC) | payer MEDICARE ==
[~2017-01-09 06:01] MED LIST: Lactated Ringers 1,000 ML IV SCH
[2017-01-09] MEDS ORDERED: Ketamine HCl 50 MG/ML IJ ONE (06:02)
[2017-01-09] MEDS ORDERED: DIPRIVAN 200 MG/20 ML IV ONE (06:02)
[2017-01-09 09:06] VITALS: O2SAT 95
[2017-01-09 09:10] VITALS: BP 141/74; PULSE 81
--- NOTE | 2017-01-09 10:14 | OP ---
SURGERY DATE/TIME: 01/09/2017 0732 PREOPERATIVE DIAGNOSIS: Screening exam. POSTOPERATIVE DIAGNOSIS: Rectosigmoid polyp. PROCEDURE: Colonoscopy with polypectomy. SURGEON: Dr. Alicea. ANESTHESIA: MAC. Medications given by anesthesia department. HISTORY: The patient is a 61 year-old white male patient presenting now for his first colonoscopy. He was appraised of the risks of the procedure including the risk of perforation, phlebitis, untoward reaction to medication, bleeding and missed lesions. The patient verbalized his understanding and desired to have the procedure performed. DESCRIPTION OF PROCEDURE: The patient was given the medications by the anesthesia department. He had continuous pulse oximetry, ECG monitoring, intermittent blood pressure monitoring and tidal CO2 monitoring during the examination. He was placed in the left lateral decubitus position. A digital rectal examination was performed and revealed normal anal sphincter tone and no masses and normal prostate. The flexible Olympus pediatric colonoscope was used to intubate the rectum. A view of the colon was developed sequentially to the cecum. Upon insertion and withdrawal was noted a 1 cm diameter polyp in the rectosigmoid area this was destroyed using multiple passes of the cold biopsy forceps. Upon insertion and withdrawal including a retroflex view in the rectum, no mucosal lesions were encountered. The scope was removed from the patient who tolerated the procedure well and was sent back to OP recovery in good condition. The prep was noted to be fair.
== END 2017-01-09 09:00 | disposition home or self-care (01) ==
LOC: SDC 06:01
PROVIDERS: ATTEND Family Medicine
PROC: 0DBN8ZX Excision of Sigmoid Colon, Via Natural or Artificial Opening Endoscopic, Diagnostic (ICD-10-PCS; principal; 2017-01-09)
DX: K63.5 Polyp of colon (principal); Z12.11 Encounter for screening for malignant neoplasm of colon; J44.9 Chronic obstructive pulmonary disease, unspecified; K21.9 Gastro-esophageal reflux disease without esophagitis; E11.9 Type 2 diabetes mellitus without complications; Z79.4 Long term (current) use of insulin; G47.30 Sleep apnea, unspecified; Z79.899 Other long term (current) drug therapy
CPT/HCPCS: 00810; 36415; 88305; J2704

== ENCOUNTER 2021-01-05 14:01 | Emergency (ER) | payer MEDICARE ==
[2021-01-05] MEDS ORDERED: Hydromorphone 1 mg/ml Injection IV ONE (14:25)
[2021-01-05] MEDS ORDERED: Sodium Chloride 0.9% 1000 ML 1,000 ML IV STA (14:25)
[2021-01-05] MEDS ORDERED: Zofran 4 MG/2 ML VIAL IV ONE (14:25)
[2021-01-05] MEDS ORDERED: Sodium Chloride 0.9% 1000 ML 1,000 ML ONE (14:29)
[2021-01-05] MEDS ORDERED: Hydromorphone 1 mg/ml Injection ONE (14:29)
[2021-01-05] MEDS ORDERED: Zofran 4 MG/2 ML VIAL ONE (14:29)
--- NOTE | 2021-01-05 14:32 | ERPHSYRPT ---
- History of Present Illness Time Seen by Provider: 01/05/21 14:20 Source: patient Exam Limitations: no limitations Patient Subjective Stated Complaint: PT states "My back hurts, I do not know if I slipped a disc or something else but it hurts." Triage Nursing Assessment: Pt presented alert and oriented X 3, skin pwd. PT ambulates grunting, moaning and stiffly. Physician History: This is a 65-year-old white male patient of Dr. Hensley who has a history of COPD, gout, hypertension and diabetes and presents with sudden onset of left flank/lower back pain that radiates down into his lower back. Patient is physically active and he is was not sure if he slipped a disc or if there is something else going on. He has not noticed hematuria. He has no history of nephrolithiasis or ureterolithiasis. Patient does not have any urinary incontinence. He has no difficulty with his bowel movements. Patient can move his legs. He has no numbness in his bilateral lower extremities. Patient denies shortness of breath and he denies chest pain. Patient denies any acute traumatic fall or injury. Timing/Duration: yesterday Method of Injury: other (No acute, traumatic injury) Severity of Pain-Max: moderate Severity of Pain-Current: moderate Modifying Factors: Improves With: movement Associated Symptoms: lower back pain, No urinary incontinence, No problems urinating, No numbness in legs/feet, No tingling in legs/feet Previous symptoms: no prior history Allergies/Adverse Reactions: Penicillins Allergy (Severe, Verified 01/09/17 06:22) Tightness of Throat face swelling too Home Medications: Albuterol 2.5 mg/3 ml Neb [Proventil 2.5 mg/3 ml Neb] 2.5 mg IH QID 03/25/16 [History] Allopurinol 300 mg [Zyloprim 300 mg] 300 mg PO DAILY 03/25/16 [History] Losartan Potassium [Cozaar] 100 mg PO DAILY 03/25/16 [History] Magnesium Oxide 400 mg [Mag-Ox 400] 400 mg PO DAILY 03/25/16 [History] Metformin HCl Xr 500 mg [Glucophage XR 500 MG] 500 mg PO DAILY 03/25/16 [History] Simvastatin 20 mg PO HS 03/25/16 [History] Fluticasone Propionate [Flonase NASAL] 2 sprays NS DAILY 04/02/16 [History] Fluticasone/Salmeterol 115/21 [Advair Hfa 115/21 Common canister*] 2 puff IH BIDRT 04/02/16 [History] Loratadine 10 mg [Claritin 10 mg] 10 mg PO DAILY 04/02/16 [History] Montelukast Sodium 10 mg PO DAILY 04/02/16 [History] Umeclidinium [place] [Incruse Ellipta] 1 puff IH DAILY 04/02/16 [History] Naproxen Sodium 220 mg PO BID 06/05/16 [History] Hx Tetanus, Diphtheria Vaccination/Date Given: No Hx Influenza Vaccination/Date Given: Yes Hx Pneumococcal Vaccination/Date Given: Yes Immunizations Up to Date: Yes Travel Risk - International Travel Have you traveled outside of the country in past 3 weeks: No - Coronavirus Screening Are you exhibiting any of the following symptoms?: No Close contact with a COVID-19 positive Pt in past 14-21 Days: No - Vaccine Status Have you recieved a Covid-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: 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[employer] - Review of Systems Constitutional: No Symptoms Eyes: No Symptoms Ears, Nose, & Throat: No Symptoms Respiratory: No Symptoms Cardiac: No Symptoms Abdominal/Gastrointestinal: No Symptoms Genitourinary Symptoms: Flank Pain (Left) Musculoskeletal: Back Pain, No Fall, No Injury Skin: No Symptoms Neurological: No Symptoms Psychological: No Symptoms Endocrine: No Symptoms Hematologic/Lymphatic: No Symptoms Immunological/Allergic: No Symptoms All Other Systems: Reviewed and Negative - Past Medical History Pertinent Past Medical History: Yes Neurological History: Migraines, Peripheral Neuropathy ENT History: No Pertinent History Cardiac History: Hypertension Respiratory History: COPD Endocrine Medical History: Diabetes Type II Musculoskeletal History: Osteoarthritis GI Medical History: GERD History: No Pertinent History Psycho-Social History: No Pertinent History Male Reproductive Disorders: No Pertinent History Other Medical History: he has a floating rib, cyst removal from back, osteopenia, disability is due to COPD. Pt has lost 80# in the past year. - Past Surgical History Past Surgical History: Yes Neuro Surgical History: No Pertinent History Cardiac: No Pertinent History Respiratory: No Pertinent History Gastrointestinal: No Pertinent History Genitourinary: No Pertinent History Musculoskeletal: No Pertinent History Male Surgical History: No Pertinent History Other Surgical History: dental - Social History Smoking Status: Former smoker Exposure to second hand smoke: Yes Alcohol Use: None Drug Use: none Patient Lives Alone: Yes - Nursing Vital Signs Nursing Vital Signs: Initial Vital Signs Temperature 97.3 F 01/05/21 14:05 Pulse Rate 84 01/05/21 14:05 Respiratory Rate 24 01/05/21 14:05 Blood Pressure 144/88 01/05/21 14:05 O2 Sat by Pulse Oximetry 96 01/05/21 14:05 Pain Scale Pain Intensity [Left Lower 8 Back] Pain Intensity 3 - Physical Exam General Appearance: no apparent distress, alert, anxiety, obese Eye Exam: PERRL/EOMI, eyes nml inspection Ears, Nose, Throat Exam: normal ENT inspection, moist mucous membranes Neck Exam: normal inspection, non-tender, supple, full range of motion Respiratory Exam: normal breath sounds, lungs clear, airway intact, No chest tenderness, No respiratory distress Cardiovascular Exam: regular rate/rhythm, normal heart sounds, normal peripheral pulses Gastrointestinal Exam: soft, normal bowel sounds, No tenderness Rectal Exam: not done Back Exam: normal inspection, normal range of motion, CVA tenderness (Left), No vertebral tenderness Extremity Exam: normal inspection, normal range of motion, pelvis stable Neurologic Exam: alert, oriented x 3, cooperative, clinical informatics spec II-XII nml as tested, normal mood/affect, nml cerebellar function, nml station & gait, sensation nml Skin Exam: normal color, warm, dry Lymphatic Exam: No adenopathy SpO2 Interpretation: normal SpO2: 96 O2 Delivery: Room Air - Course Nursing assessment & vital signs reviewed: Yes Ordered Tests: Active Orders 24 hr Category Date Time Status IV Insertion STAT Care 01/05/21 14:25 Active ABDOMEN AND PELVIS W/0 CONTRAS [CT] Stat Exams 01/05/21 14:26 Completed AMYLASE Stat Lab 01/05/21 14:42 Completed CBC W DIFF Stat Lab 01/05/21 14:42 Completed CMP Stat Lab 01/05/21 14:42 Completed LIPASE Stat Lab 01/05/21 14:42 Completed Lactic Acid Stat Lab 01/05/21 14:35 Completed UA W/RFX UR CULTURE Stat Lab 01/05/21 14:27 Received Medication Summary Generic Name Dose Route Start Last Admin Trade Name Freq PRN Reason Stop Dose Admin Sodium Chloride 1,000 mls @ 999 mls/hr 01/05/21 14:25 01/05/21 14:38 Sodium Chloride 0.9% 1000 Ml IV 01/05/21 15:25 999 mls/hr .Q1H1M STA Administration Discontinued Medications Generic Name Dose Route Start Last Admin Trade Name Jessica PRN Reason Stop Dose Admin Hydromorphone HCl 1 mg 01/05/21 14:25 01/05/21 14:36 Hydromorphone 1 Mg/1ml Inj 1 Mg/Ml Syringe IV 01/05/21 14:26 1 mg STAT ONE Administration Hydromorphone HCl Confirm 01/05/21 14:29 Hydromorphone 1 Mg/1ml Inj 1 Mg/Ml Syringe Administered 01/05/21 14:30 Dose 1 mg .ROUTE .STK-MED ONE Sodium Chloride Confirm 01/05/21 14:29 Sodium Chloride 0.9% 1000 Ml Administered 01/05/21 14:30 Dose 1,000 mls @ ud .ROUTE .STK-MED ONE Ondansetron HCl 4 mg 01/05/21 14:25 01/05/21 14:33 Ondansetron Hcl 4 Mg/2 Ml Vial IV 01/05/21 14:26 4 mg STAT ONE Administration Ondansetron HCl Confirm 01/05/21 14:29 Ondansetron Hcl 4 Mg/2 Ml Vial Administered 01/05/21 14:30 Dose 4 mg .ROUTE .STK-MED ONE Lab/Rad Data: Laboratory Result Diagrams 01/05/21 14:42 01/05/21 14:42 Laboratory Results 01/05/21 01/05/21 01/05/21 Range/Units 14:42 14:42 14:35 WBC 7.4 (4.0-10.5) K/mm3 RBC 4.93 (4.1-5.6) M/mm3 Hgb 16.3 (12.5-18.0) gm/dl Hct 48.6 (42-50) % MCV 98.6 (78-100) fl MCH 33.1 H (26-32) pg MCHC 33.5 (32-36) g/dl RDW 13.7 (11.5-14.0) % Plt Count 240 (150-450) K/mm3 MPV 10.9 (7.5-11.0) fl Gran % 61.6 (36.0-66.0) % Eos # (Auto) 0.24 (0-0.5) Absolute Lymphs (auto) 1.83 (1.0-4.6) Absolute Monos (auto) 0.75 (0.0-1.3) Lymphocytes % 24.7 (24.0-44.0) % Monocytes % 10.1 (0.0-12.0) % Eosinophils % 3.2 (0.00-5.0) % Basophils % 0.4 (0.0-0.4) % Absolute Granulocytes 4.57 (1.4-6.9) Basophils # 0.03 (0-0.4) Sodium 136 L (137-145) mmol/L Potassium 4.7 (3.5-5.1) mmol/L Chloride 104 (98-107) mmol/L Carbon Dioxide 21 L (22-30) mmol/L Anion Gap 15.9 H (5-15) MEQ/L BUN 21 H (9-20) mg/dL Creatinine 0.86 (0.66-1.25) mg/dL Estimated GFR > 60.0 ML/MIN Glucose 101 (74-106) mg/dL Lactic Acid 1.5 (0.4-2.0) Calcium 9.1 (8.4-10.2) mg/dL Total Bilirubin 1.10 (0.2-1.3) mg/dL AST 49 (17-59) U/L ALT 49 (0-50) U/L Alkaline Phosphatase 67 (38-126) U/L Serum Total Protein 7.2 (6.3-8.2) g/dL Albumin 4.3 (3.5-5.0) g/dL Amylase 69 (30-110) U/L Lipase 72 (23-300) U/L - Progress Progress: improved, pain not gone completely, re-examined Progress Note: 01/05/21 15:12 CAT scan of the abdomen pelvis without contrast shows minimal degenerative changes throughout the spine. There is new mild urinary bladder wall thickening. This could be due to incomplete distention versus cystitis. Counseled pt/family regarding: lab results, diagnosis, need for follow-up, rad results - Departure Departure Disposition: Home Clinical Impression: Cystitis, Acute exacerbation of chronic low back pain Condition: Stable Critical Care Time: No Referrals: ERIS BARAJAS DO [Primary Care Provider] - Additional Instructions: Drink plenty of fluids. Take medication as prescribed. Follow-up with your prescribing physician for further management. Prescriptions: Ciprofloxacin [Cipro 500 MG] 500 mg PO BID #14 tablet Cyclobenzaprine HCl 10 mg [Cyclobenzaprine 10 MG] 10 mg PO TID #10 tablet Prednisone 10 mg [Deltasone 10 mg] 10 mg PO TID #12 tablet Tramadol HCl 50 mg [Ultram 50 mg] 50 mg PO TID PRN #6 tablet PRN Reason: Moderate Pain
[2021-01-05 14:53] LABS: Absolute Neutrophil Ct (ANC) 4.57 (1.4-6.9); BASOPHIL % 0.4 % (0.0-0.4); Basophil (Absolute #) 0.03 (0-0.4); Eosinophil % 3.2 % (0.00-5.0); Eosinophil (Absolute #) 0.24 (0-0.5); Hematocrit 48.6 % (42-50); Hemoglobin 16.3 gm/dl (12.5-18.0); Lymphocyte (Absolute #) 1.83 (1.0-4.6); Lymphocytes % 24.7 % (24.0-44.0); Mean Cell Volume 98.6 fl (78-100); Mean Corpuscular Hemoglobin 33.1 pg (26-32); Mean Corpuscular Hgb Concent. 33.5 g/dl (32-36); Mean Platelet Volume 10.9 fl (7.5-11.0); Monocyte (Absolute #) 0.75 (0.0-1.3); Monocytes % 10.1 % (0.0-12.0); Neutrophil % 61.6 % (36.0-66.0); Platelet Count 240 K/mm3 (150-450); Red Blood Count 4.93 M/mm3 (4.1-5.6); Red Cell Distribution Width 13.7 % (11.5-14.0); White Blood Count 7.4 K/mm3 (4.0-10.5)
[2021-01-05 14:58] LABS: ALBUMIN 4.3 g/dL (3.5-5.0); ALKALINE PHOSPHATASE 67 U/L (38-126); AMYLASE 69 U/L (30-110); ANION GAP 15.9 MEQ/L (5-15); BLOOD UREA NITROGEN 21 mg/dL (9-20); CHLORIDE 104 mmol/L (98-107); Calcium 9.1 mg/dL (8.4-10.2); Carbon Dioxide 21 mmol/L (22-30); Creatinine 1 0.86 mg/dL (0.66-1.25); EST GLOMERULAR FILTRATION RATE > 60.0 ML/MIN; Glucose 101 mg/dL (74-106); LIPASE 72 U/L (23-300); Potassium 4.7 mmol/L (3.5-5.1); SGOT/AST 49 U/L (17-59); SGPT/ALT 49 U/L (0-50); SODIUM 136 mmol/L (137-145); Total Protein 7.2 g/dL (6.3-8.2)
--- NOTE | 2021-01-05 15:07 | XRAY ---
Indication: Left flank pain. Multiple contiguous axial images obtained through the abdomen and pelvis without contrast. Comparison: April 02, 2016. 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 No infiltrate or effusion. Heart not enlarged. Noncontrasted stomach and bowel loops are nonobstructed. Normal appendix. Minimal distal descending colonic diverticulosis. No free fluid/air. Urinary bladder normally distended with new mild circumferential wall thickening either incomplete distention versus cystitis. Remaining liver, gallbladder, pancreas, spleen, adrenal glands, kidneys, ureters, and bladder are unremarkable for noncontrast exam. Again mild scattered aortoiliac calcifications without AAA. Osseous structures again demonstrates minimal degenerative changes throughout the spine and L5 spondylolysis with minimal grade 1 spondylolisthesis. Stable small right iliopsoas intramuscular lipoma the level of the hip. Impression: 1. New mild urinary bladder wall thickening either incomplete distention versus cystitis. 2. Incidental minimal colonic diverticulosis, small right iliopsoas intramuscular lipoma, and chronic bony findings. 3. Remaining CT abdomen/pelvis without contrast exam is negative.
[2021-01-05 15:13] LABS: Appearance CLEAR (CLEAR); Bilirubin NEGATIVE (NEGATIVE); Blood NEGATIVE Ery/ul (0-5); Glucose >=500 mg/dL (NEGATIVE); Ketones NEGATIVE (NEGATIVE); Leukocyte Esterase NEGATIVE (NEGATIVE); Nitrite NEGATIVE (NEGATIVE); Protein,Urine Dip NEGATIVE (Negative); Specific Gravity 1.009 (1.005-1.025); Urobilinogen NEGATIVE mg/dL (0-1)
[2021-01-05 15:40] VITALS: BP 144/88; PULSE 80; O2SAT 98
== END 2021-01-05 16:08 | disposition home or self-care (01) ==
LOC: ED 14:01
DX: N30.90 Cystitis, unspecified without hematuria (principal); M54.50 Low back pain, unspecified; Z79.899 Other long term (current) drug therapy; E11.9 Type 2 diabetes mellitus without complications; I10 Essential (primary) hypertension; J44.9 Chronic obstructive pulmonary disease, unspecified; G62.9 Polyneuropathy, unspecified
CPT/HCPCS: 36000; 36415; 74176; 80053; 81001; 82150; 83605; 83690; 85025; 96374; 96375; 99284; J1170; J2405

== ENCOUNTER 2021-03-02 08:42 | Day surgery (SDC) | payer MEDICARE ==
[2021-03-02] MEDS ORDERED: Depo-Medrol 40 MG/ML IM ONE (08:43)
[2021-03-02] MEDS ORDERED: BUPIVACAINE 0.5% VIAL IJ ONE (08:43)
[2021-03-02] MEDS ORDERED: Xylocaine 1% Vial 30 ML PF IJ ONE (08:43)
--- NOTE | 2021-03-02 11:56 | XRAY ---
Indication: Right shoulder and subacromial injections. Intraoperative fluoroscopy provided for 22 seconds. 2 digital spot image submitted for interpretation demonstrates needle tip projecting over the right glenohumeral joint superiorly. Second needle tip is subacromial. Small amount of contrast injected for both needle tip placement. Correlate with intraoperative findings/report.
--- NOTE | 2021-03-02 11:58 | XRAY ---
22 seconds fluoroscopy time in surgery for intra-articular and subachromial injections of the right shoulder.
== END 2021-03-02 10:25 | disposition home or self-care (01) ==
LOC: SDC-PAIN 08:42
PROVIDERS: ATTEND Psychiatry & Neurology Pain Medicine
DX: M19.011 Primary osteoarthritis, right shoulder (principal); M75.51 Bursitis of right shoulder; I10 Essential (primary) hypertension; E11.9 Type 2 diabetes mellitus without complications; Z79.899 Other long term (current) drug therapy
CPT/HCPCS: 20610; 73030; 77002; 82947; J1030; J2001; Q9966

== ENCOUNTER 2021-03-30 07:04 | Day surgery (SDC) | payer MEDICARE ==
[2021-03-30] MEDS ORDERED: LIDOCAINE HCL 2% 100 MG/5 ML IJ ONE (07:05)
[2021-03-30] MEDS ORDERED: Depo-Medrol 40 MG/ML IM ONE (07:05)
[2021-03-30] MEDS ORDERED: Lactated Ringers 1,000 ML IV ONE (08:16)
[2021-03-30] MEDS ORDERED: DIPRIVAN 200 MG/20 ML IV ONE (08:35)
--- NOTE | 2021-03-30 09:35 | XRAY ---
Indication: Bilateral L4-S1 MBB. Intraoperative fluoroscopy provided for 22 seconds. Single digital spot image submitted for interpretation demonstrates posterior needle tips projecting over the expected left and right L4-S1 nerve roots. Correlate with intraoperative findings/report.
--- NOTE | 2021-03-30 10:53 | XRAY ---
22 seconds of fluoroscopy was used in surgery for a bilateral L4-S1 MBB.
== END 2021-03-30 08:58 | disposition home or self-care (01) ==
LOC: SDC-PAIN 07:04
PROVIDERS: ATTEND Psychiatry & Neurology Pain Medicine
DX: M47.816 Spondylosis without myelopathy or radiculopathy, lumbar region (principal); I10 Essential (primary) hypertension; E11.9 Type 2 diabetes mellitus without complications; Z79.899 Other long term (current) drug therapy
CPT/HCPCS: 64493; 64494; 72020; 77002; 82947; J1030; J2704

== ENCOUNTER 2021-04-20 07:22 | Day surgery (SDC) | payer MEDICARE ==
[2021-04-20] MEDS ORDERED: Depo-Medrol 40 MG/ML IM ONE (07:23)
[2021-04-20] MEDS ORDERED: BUPIVACAINE 0.5% VIAL IJ ONE (07:23)
[2021-04-20] MEDS ORDERED: DIPRIVAN 200 MG/20 ML IV ONE (09:05)
[2021-04-20] MEDS ORDERED: Lactated Ringers 1,000 ML IV ONE (09:29)
--- NOTE | 2021-04-20 09:44 | XRAY ---
Indication: Bilateral L4-S1 MBB. Intraoperative fluoroscopy provided for 26 seconds. Single digital spot image submitted for interpretation demonstrates posterior needle tips projecting over the expected left and right L4-S1 nerve roots. Correlate with intraoperative findings/report.
--- NOTE | 2021-04-20 09:47 | XRAY ---
26 seconds fluoroscopy time in surgery for bilateral L4-S1 MBB.
== END 2021-04-20 09:32 | disposition home or self-care (01) ==
LOC: SDC-PAIN 07:22
PROVIDERS: ATTEND Psychiatry & Neurology Pain Medicine
DX: M47.816 Spondylosis without myelopathy or radiculopathy, lumbar region (principal); I10 Essential (primary) hypertension; E11.9 Type 2 diabetes mellitus without complications; Z79.899 Other long term (current) drug therapy
CPT/HCPCS: 64493; 64494; 72020; 77002; 82947; J1030; J2704

== ENCOUNTER 2022-04-03 05:44 | Day surgery (SDC) | payer MEDICARE ==
[2022-04-03] MEDS ORDERED: DIPRIVAN 200 MG/20 ML IV ONE (06:27)
[2022-04-03] MEDS ORDERED: Xylocaine-Mpf 2% 5 Ml Vial ONE (06:27)
[2022-04-03] MEDS ORDERED: Lactated Ringers 1,000 ML IV SCH (06:30)
[2022-04-03] MEDS ORDERED: Xopenex 1.25 MG/0.5 ML UD NEBULE IH ONE (07:02)
[2022-04-03] MEDS ORDERED: Sodium Chloride 3 ML UD NEBULES IH ONE (07:03)
[2022-04-03] MEDS ORDERED: Versed 2 MG/2 ML Injection ONE (07:27)
[2022-04-03 08:30] VITALS: O2SAT 95
[2022-04-03 08:37] VITALS: BP 161/77; PULSE 71
--- NOTE | 2022-04-03 12:49 | OP ---
SURGERY DATE/TIME: 04/03/2022 0729 PREOPERATIVE DIAGNOSIS: Screening exam. POSTOPERATIVE DIAGNOSES: 1) Small polyp in the transverse colon. 2) Small polyp in the rectosigmoid colon. PROCEDURE: Colonoscopy with cold forceps biopsy. SURGEON: Dr. Alicea. ANESTHESIA: MAC. Medications given by anesthesia department. HISTORY: The patient is a 66-year-old white male patient presenting now for screening colonoscopy. He was appraised of the risks of the procedure including the risk of perforation, phlebitis, untoward reaction to medication, bleeding and missed lesions. The patient verbalized his understanding and desired to have the procedure performed. DESCRIPTION OF PROCEDURE: The patient was given the medications by the anesthesia department. He had continuous pulse oximetry, ECG monitoring and intermittent blood pressure monitoring during the examination. He was placed in the left lateral decubitus position. A digital rectal examination was performed and revealed normal anal sphincter tone, no masses and normal prostate. The flexible Olympus pediatric colonoscope was used to intubate the rectum. A view of the colon was developed sequentially to the cecum. Upon insertion and withdrawal, including a retroflex view in the rectum, there were noted polyps measuring approximately 0.7 cm in size in the transverse colon and approximately 0.6 cm in size in the rectosigmoid area which were biopsied and destroyed using passes of cold forceps biopsy tool. The scope was removed from the patient who tolerated the procedure well and was sent back to OP recovery in good condition. The prep was noted to be fair.
== END 2022-04-03 08:45 | disposition home or self-care (01) ==
LOC: SDC 05:44
PROVIDERS: ATTEND Family Medicine
DX: Z12.11 Encounter for screening for malignant neoplasm of colon (principal); E11.9 Type 2 diabetes mellitus without complications; D12.7 Benign neoplasm of rectosigmoid junction; D12.3 Benign neoplasm of transverse colon
CPT/HCPCS: 82947; 94640; J2250; J2704; A9270-GY

== ENCOUNTER 2022-05-10 07:02 | Day surgery (SDC) | payer MEDICARE ==
[2022-05-10] MEDS ORDERED: Depo-Medrol 40 MG/ML IM ONE (07:03)
[2022-05-10] MEDS ORDERED: BUPIVACAINE 0.5% VIAL IJ ONE (07:03)
[2022-05-10] MEDS ORDERED: DIPRIVAN 200 MG/20 ML IV ONE (08:25)
--- NOTE | 2022-05-10 10:28 | XRAY ---
Indication: Right intercostal nerve block. Intraoperative fluoroscopy provided for 24 seconds. 4 digital spot image submitted for interpretation demonstrates anteriorly and lateral needle tips projecting over unknown right inferior ribs. Correlate with intraoperative findings/report.
--- NOTE | 2022-05-10 11:15 | XRAY ---
24 seconds of fluoroscopy was used in surgery for a right rib intercostal nerve block.
[2022-05-10] MEDS ORDERED: Lactated Ringers 1,000 ML IV ONE (14:13)
== END 2022-05-10 08:56 | disposition home or self-care (01) ==
LOC: SDC-PAIN 07:02
PROVIDERS: ATTEND Psychiatry & Neurology Pain Medicine
DX: G58.0 Intercostal neuropathy (principal); E11.9 Type 2 diabetes mellitus without complications; Z79.899 Other long term (current) drug therapy
CPT/HCPCS: 64420; 64421; 71100; 77002; 82947; J1030; J2704

== ENCOUNTER 2022-06-18 15:13 | Emergency (ER) | payer MEDICARE ==
--- NOTE | 2022-06-18 15:39 | ERPHSYRPT ---
- History of Present Illness Source: patient Exam Limitations: no limitations Patient Subjective Stated Complaint: Dog bite left hand. Physician History: His uncle's dog bit him on the left hand. Immunizations reported UTD. Dog can be quarantined, form done by nurse. Occurred: just prior to arrival Method of Injury: incised (dog bite) Quality: constant Severity of Pain-Max: mild Severity of Pain-Current: mild Extremities Pain Location: hand: left Modifying Factors: Improves With: rest. Worsens With: movement Associated Symptoms: none Allergies/Adverse Reactions: Penicillins Allergy (Severe, Verified 06/18/22 15:53) Tightness of Throat face swelling too Home Medications: Albuterol 2.5 mg/3 ml Neb [Proventil 2.5 mg/3 ml Neb] 3 ml IH Q6H PRN PRN 03/31/22 [History] Albuterol 8 gm Mdi Hfa [Ventolin Hfa MDI] 2 puffs IH QID 03/31/22 [History] Alendronate Sodium 1 tab PO WEEKLY 03/31/22 [History] Allopurinol 300 mg [Zyloprim 300 mg] 300 mg PO DAILY 03/31/22 [History] Atorvastatin Calcium 40 mg PO DAILY 03/31/22 [History] Calcium Carb,Gluc/Mag Ox,Gluc [Calcium Magnesium Caplet] 1 tab PO DAILY 03/31/22 [History] Cholecalciferol (Vitamin D3) [Vitamin D] 2,000 units PO DAILY 03/31/22 [History] Dapagliflozin/Metformin HCl [Xigduo Xr 10 mg-1,000 mg Tab] 1 tab PO DAILY 03/31/22 [History] Duloxetine HCl 40 mg PO DAILY 03/31/22 [History] Ezetimibe 10 mg [Zetia 10 MG] 10 mg PO DAILY 03/31/22 [History] Fish Oil/Dha/Epa [Fish Oil 1,200 mg Fish Oil] 1 cap PO DAILY 03/31/22 [History] Fluticasone Propionate [Flonase Allergy Relief] 2 sprays INTRANASAL DAILY 03/31/22 [History] Fluticasone/Salmeterol 115/21 [Advair Hfa 115/21 Common canister*] 2 puff IH BIDRT 03/31/22 [History] Metoprolol Succinate 25 mg PO DAILY 03/31/22 [History] Montelukast Sodium 10 mg [Singulair 10 MG] 10 mg PO DAILY 03/31/22 [History] Naproxen Sodium [Aleve] 2 tab PO DAILY PRN PRN 03/31/22 [History] Sucralfate 1 gm [Carafate 1 GM] 1 tab PO DAILY 03/31/22 [History] Tamsulosin HCl 0.4 mg [Flomax 0.4 MG] 0.4 mg PO DAILY 03/31/22 [History] Umeclidinium [place] [Incruse Ellipta] 1 puff IH DAILY 03/31/22 [History] Vitamin A 1 cap PO DAILY 03/31/22 [History] Hx Tetanus, Diphtheria Vaccination/Date Given: No Hx Influenza Vaccination/Date Given: Yes Hx Pneumococcal Vaccination/Date Given: Yes Travel Risk - International Travel Have you traveled outside of the country in past 3 weeks: No - Vaccine Status Have you recieved a Covid-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: 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[email or web address] - Review of Systems Constitutional: No Symptoms Eyes: No Symptoms Ears, Nose, & Throat: No Symptoms Respiratory: No Symptoms Cardiac: No Symptoms Abdominal/Gastrointestinal: No Symptoms Genitourinary Symptoms: No Symptoms Musculoskeletal: No Symptoms Skin: No Symptoms Neurological: No Symptoms Psychological: No Symptoms Endocrine: No Symptoms Hematologic/Lymphatic: No Symptoms Immunological/Allergic: No Symptoms All Other Systems: Reviewed and Negative - Past Medical History Pertinent Past Medical History: Yes Neurological History: Migraines, Peripheral Neuropathy ENT History: No Pertinent History Cardiac History: High Cholesterol, Hypertension Respiratory History: COPD, Sleep Apnea Endocrine Medical History: Diabetes Type II Musculoskeletal History: Osteoarthritis GI Medical History: GERD History: No Pertinent History Psycho-Social History: No Pertinent History Male Reproductive Disorders: No Pertinent History Other Medical History: he has a floating rib, cyst removal from back, osteopenia, disability is due to COPD. Pt has lost 80# in the past year. osteopenia. COPD with sleep apnea- pt denies using his c-pap. 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 Pt has completed antibiotic course yesterday. - Past Surgical History Past Surgical History: Yes Neuro Surgical History: No Pertinent History Cardiac: No Pertinent History Respiratory: No Pertinent History Gastrointestinal: No Pertinent History Genitourinary: No Pertinent History Musculoskeletal: No Pertinent History Male Surgical History: No Pertinent History Other Surgical History: dental. cyst in back - Social History Smoking Status: Former smoker Exposure to second hand smoke: No Alcohol Use: None Drug Use: none Patient Lives Alone: Yes - Nursing Vital Signs Nursing Vital Signs: Initial Vital Signs Temperature 97.1 F 06/18/22 15:31 Pulse Rate 77 06/18/22 15:31 Blood Pressure 167/94 06/18/22 15:31 O2 Sat by Pulse Oximetry 95 06/18/22 15:31 Pain Scale Pain Intensity 4 - Physical Exam General Appearance: no apparent distress Eyes, Ears, Nose, Throat Exam: normal ENT inspection Neck Exam: normal inspection, non-tender Cardiovascular/Respiratory Exam: chest non-tender, normal breath sounds Abdominal Exam: non-tender, soft Back Exam: normal inspection, normal range of motion Shoulder Exam: normal inspection, non-tender Elbow/Forearm Exam: normal inspection, non-tender Hand Exam: soft tissue tenderness (jagged lac in sections, about 10 cm in length, no nerve or tendon injury, dorsal middle f.) Neuro/Tendon Exam: normal sensation, normal motor functions, normal tendon functions, responds to pain, no evidence tendon injury Mental Status Exam: alert, oriented x 3 Skin Exam: normal color, warm, dry Procedures - Laceration/Wound Repair Left Dorsal Finger Wound Location: Left Wound Length (cm): 10 Wound's Depth, Shape: superficial, irregular, flap, into subcut Wound Explored: to base Irrigated: Yes Hibiclens Prep: Yes Anesthesia: digital block Volume Anesthetic (ccs): 6 Wound Debrided: minimal Wound Repaired With: sutures Suture Size/Type: 4-0, nylon Number of Sutures: 21 Sterile Dressing Applied?: Yes Splint Applied?: No Sling Applied?: No - Course Nursing assessment & vital signs reviewed: Yes Ordered Tests: Medication Summary Generic Name Dose Route Start Last Admin Trade Name Freq PRN Reason Stop Dose Admin Hydrocodone Bitart/Acetaminophen 2 tab 06/18/22 17:17 Hydrocodone/Apap 5/325 1 Tab Tablet PO 06/18/22 17:18 SENT HOME W/ PATIENT ONE Discontinued Medications Generic Name Dose Route Start Last Admin Trade Name Freq PRN Reason Stop Dose Admin Cephalexin HCl 500 mg 06/18/22 17:10 Cephalexin Mh500 Mg Capsule PO 06/18/22 17:11 STAT ONE Diphtheria/Tetanus/Acell Pertussis 0.5 ml 06/18/22 15:58 06/18/22 16:28 Tdap --Diph,Pertuss(Acell),Tet Vac/Pf 0.5 Ml Vial IM 06/18/22 15:59 0.5 ml .ONCE ONE Administration Diphtheria/Tetanus/Acell Pertussis Confirm 06/18/22 16:27 Tdap --Diph,Pertuss(Acell),Tet Vac/Pf 0.5 Ml Vial Administered 06/18/22 16:28 Dose 0.5 ml IM .STK-MED ONE Lidocaine HCl Confirm 06/18/22 16:03 Lidocaine Hcl 1% 20 Ml Mdv 20 Ml Ml Administered 06/18/22 16:04 Dose 10 ml .ROUTE .STK-MED ONE Lidocaine HCl 10 ml 06/18/22 16:25 06/18/22 16:28 Lidocaine Hcl 1% 20 Ml Mdv 20 Ml Ml IJ 06/18/22 16:26 10 ml STAT ONE Administration - Progress Progress: improved Progress Note: 06/18/22 17:29 Wound repaired, jagged, irreg lac, cleaned and closed, Rx keflex (has taken before), S/R 10-14 d. Boostrix given. 06/18/22 17:30 Counseled pt/family regarding: diagnosis, need for follow-up Medical Desision Making - Diagnostic Testing Diagnostic test were ordered, analyzed, and reviewed by me: No - Departure Departure Disposition: Home Clinical Impression: Finger laceration Qualifiers: Encounter type: initial encounter Finger: middle finger Damage to nail status: without damage Foreign body presence: without foreign body Laterality: left Qualified Code(s): S61.213A - Laceration without foreign body of left middle finger without damage to nail, initial encounter Condition: Stable Critical Care Time: No Instructions: Animal Bites (DC) Additional Instructions: Wound care as advised. Stitches out in 10-14 days. Recheck sooner if any infection or other concerns. Prescriptions: Cephalexin Mh 500 mg [Keflex 500 mg] 500 mg PO TID 7 Days #21 cap
[2022-06-18 15:53] VITALS: BP 167/94; O2SAT 95
[2022-06-18] MEDS ORDERED: Adacel Vial IM ONE ×2 (15:58→16:27)
[2022-06-18] MEDS ORDERED: XYLOCAINE 1% HCL 20 ML MDV ONE (16:03)
[2022-06-18] MEDS ORDERED: XYLOCAINE 1% HCL 20 ML MDV IJ ONE (16:25)
[2022-06-18] MEDS ORDERED: KEFLEX 500 MG PO ONE (17:10)
[2022-06-18] MEDS ORDERED: NORCO 5/325 MG PO ONE (17:17)
[2022-06-18] MEDS ORDERED: KEFLEX 500 MG ONE (17:19)
[2022-06-18] MEDS ORDERED: NORCO 5/325 MG ONE (17:20)
[2022-06-18 17:46] VITALS: PULSE 72
== END 2022-06-18 17:46 | disposition home or self-care (01) ==
LOC: ED 15:13
DX: S61.253A Open bite of left middle finger without damage to nail, initial encounter (principal); W54.0XXA Bitten by dog, initial encounter; E78.5 Hyperlipidemia, unspecified; I10 Essential (primary) hypertension; E11.42 Type 2 diabetes mellitus with diabetic polyneuropathy; Z79.84 Long term (current) use of oral hypoglycemic drugs; Z79.899 Other long term (current) drug therapy
CPT/HCPCS: 12004; 90471; 90715; 96372; 99283; A9270-GY

== ENCOUNTER 2022-09-06 15:39 | Day surgery (SDC) | payer MEDICARE ==
[2022-09-06] MEDS ORDERED: LIDOCAINE HCL 1% 50 MG/5 ML VL PF IJ ONE (15:40)
[2022-09-06] MEDS ORDERED: BUPIVACAINE 0.5% VIAL IJ ONE (15:40)
[2022-09-06] MEDS ORDERED: Depo-Medrol 40 MG/ML IM ONE (15:40)
--- NOTE | 2022-09-06 19:28 | XRAY ---
Indication: Right shoulder injection. Intraoperative fluoroscopy provided for 14 seconds. Single digital spot image submitted for interpretation demonstrates needle tip projecting over the right glenohumeral joint superiorly. Small amount of contrast injected for needle tip placement. Correlate with intraoperative findings/report.
--- NOTE | 2022-09-07 10:04 | XRAY ---
14 seconds of fluoroscopy was used in surgery for a right intra-articular shoulder injection.
== END 2022-09-06 17:45 | disposition home or self-care (01) ==
LOC: SDC-PAIN 15:39
PROVIDERS: ATTEND Psychiatry & Neurology Pain Medicine
DX: M19.011 Primary osteoarthritis, right shoulder (principal); E11.9 Type 2 diabetes mellitus without complications; Z79.899 Other long term (current) drug therapy
CPT/HCPCS: 20610; 73030; 77002; 82947; J1030; J2001; Q9966

== ENCOUNTER 2023-03-14 07:30 | Day surgery (SDC) | payer MEDICARE ==
[2023-03-14] MEDS ORDERED: Depo-Medrol 40 MG/ML IM ONE (07:31)
[2023-03-14] MEDS ORDERED: BUPIVACAINE 0.5% VIAL IJ ONE (07:31)
[2023-03-14] MEDS ORDERED: DIPRIVAN 200 MG/20 ML IV ONE (09:52)
[2023-03-14] MEDS ORDERED: Lactated Ringers 1,000 ML IV ONE (10:42)
--- NOTE | 2023-03-14 10:57 | XRAY ---
Indication: Bilateral L4-S1 MBB. Intraoperative fluoroscopy provided for 24 seconds. Single digital spot image submitted for interpretation demonstrates posterior needle tips projecting over the expected left and right L4-S1 nerve roots. Correlate with intraoperative findings/report.
--- NOTE | 2023-03-14 12:32 | XRAY ---
24 seconds of fluoroscopy was used in surgery for a bilateral L4-S1 MBB.
== END 2023-03-14 10:17 | disposition home or self-care (01) ==
LOC: SDC-PAIN 07:30
PROVIDERS: ATTEND Psychiatry & Neurology Pain Medicine
DX: M47.816 Spondylosis without myelopathy or radiculopathy, lumbar region (principal); E11.9 Type 2 diabetes mellitus without complications
CPT/HCPCS: 64493; 64494; 72020; 77002; 82947; J1030; J2704